=== PATIENT | female | born 1995 | race Caucasian/White ===

== ENCOUNTER → 2017-03-07 | Outpatient (CLI) | payer BC ==
--- NOTE | 2017-03-07 22:09 | MR ---
EXAMINATION TYPE: MR knee LT wo con DATE OF EXAM: 03/07/2017 COMPARISON: NONE HISTORY: Left knee pain per order. Inner knee pain and swelling for 4 weeks after softball injury per patient. TECHNIQUE: Multiplanar, multisequence images of the knee is performed without IV contrast. FINDINGS: MEDIAL MENISCUS: Anterior and posterior horns are intact without tear. LATERAL MENISCUS: Anterior and posterior horns are intact without tear. CRUCIATE LIGAMENTS: The anterior and posterior cruciate ligaments are intact and unremarkable. COLLATERAL LIGAMENTS: The medial collateral ligament and lateral collateral ligament complex are inta ct and unremarkable. EXTENSOR MECHANISM: Visualized quadriceps and patellar tendons are intact. EFFUSION: No significant suprapatellar joint effusion. POPLITEAL CYST: No popliteal/starkey cyst. TRICOMPARTMENT SPACES: Tricompartment joint spaces are fairly well-maintained. No significant spurrin g is seen. CARTILAGE: Tricompartment articular cartilage is felt within normal limits. There is no significant c hondromalacia patella. BONE MARROW SIGNAL: No focal abnormal marrow signal is appreciated. OTHER: No additional significant abnormality is appreciated. IMPRESSION: No meniscal or ligamentous tear is seen. No significant finding is seen to account for jennifer self's symptoms.
== END | disposition home or self-care (01) ==
LOC: RADMRIMAIN 20:07
PROVIDERS: ATTEND Physician Assistant
DX: M25.562 Pain in left knee (principal)

== ENCOUNTER 2018-10-10 15:14 | Emergency (ER) | payer BC, OTHER ==
[2018-10-10 15:21] VITALS: TEMP 97.8
[2018-10-10] MEDS ORDERED: ACETAMINOPHEN TAB 325 MG TAB PO STA (15:39)
--- NOTE | 2018-10-10 16:25 | ED ---
General Adult HPI - General Chief complaint: Fall Stated complaint: Fall, neck pain, 32 weeks Source: patient, RN notes reviewed, old records reviewed Mode of arrival: ambulatory Limitations: no limitations - History of Present Illness Initial comments: 23-year-old female patient who is 32 weeks gestation, no other pertinent pmhx presents to ED after sustaining a mechanical fall last night. Patient reports that she was walking around a car when she slipped on ice and fell onto her left hip/side region. Patient denies any significant trauma to abdomen, patient denies any trauma to head or neck. She denies any loss of consciousness. Patient reports that she presents to ER today because she has some mild paracervical neck pain, parathoracic back pain. Patient denies any other complaints. Patient denies any chest pain, shortness breath, abdominal pain, vaginal bleeding, abdominal cramping, vaginal discharge, loss of bowel or bladder control, nausea vomiting diarrhea, fever or chills. Patient denies IV drug use. Systemic: Pt denies fatigue, myalgia, fever/chills, rash. Pt denies weakness, night sweats, weight loss. Neuro: Pt denies headache, visual disturbances, syncope or pre-syncope. HEENT: Pt denies ocular discharge or irritation, otalgia, rhinorrhea, pharyngitis or notable lymphadenopathy. Cardiopulmonary: Pt denies chest pain, SOB, heart palpitations, dyspnea on exertion. Abdominal/GI: Pt denies abdominal pain, n/v/d. : Pt denies dysuria, burning w/ urination, frequency/urgency. Denies new onset urinary or bowel incontinence. MSK: Pt denies myalgia, loss of strength or function in extremities. Neuro: Pt denies new onset weakness, paresthesias. - Related Data Allergies Allergy/AdvReac Type Severity Reaction Status Date / Time No Known Allergies Allergy Verified 10/10/18 15:21 Review of Systems ROS Statement: Those systems with pertinent positive or pertinent negative responses have been documented in the HPI. ROS Other: All systems not noted in ROS Statement are negative. Past Medical History Past Medical History: No Reported History History of Any Multi-Drug Resistant Organisms: None Reported Past Surgical History: No Surgical Hx Reported Past Psychological History: No Psychological Hx Reported Smoking Status: Never smoker Past Alcohol Use History: None Reported Past Drug Use History: None Reported General Exam - General Exam Comments Initial Comments: Constitutional: NAD, AOX3, Pt has pleasant affect. HEENT: NC/AT, trachea midline, neck supple, no lymphadenopathy. Posterior pharynx non erythematous, without exudates. External ears appear normal, without discharge. Mucous membranes moist. Eyes PERRLA, EOM intact. There is no scleral icterus. No pallor noted. Cardiopulmonary: RRR, no murmurs, rubs or gallops, no JVD noted. Lungs CTAB in anterior and posterior reed. No peripheral edema. Abdominal exam: Abdomen soft and non-distended. Abdomen non-tender to palpation in all 4 quadrants. Bowel sounds active in LLQ. No hepatosplenomegaly. No ecchymosis. Neuro: CN II-XII grossly intact. No nuchal rigidity. MSK: No midline cervical spinal tenderness. Mild R paracervical spinal tenderness. Mild L parathoracic spinal tenderness. No midline thoracic or lumbar tenderness. Psoas and quadricpes 5/5 strength bilaterally. Achillies and patellar reflex 2/4 bilaterally. Heel to toe walking intact. No posterior calf tenderness bilaterally, homans sign negative bilaterally. Posterior tibialis and radial pulse +2 bilaterally. Sensation intact in upper and lower extremities. Full active ROM in upper and lower extremities, 5/5 strength. Limitations: no limitations Course Vital Signs 10/10/18 10/10/18 15:18 16:57 Temperature 97.8 F 97.8 F Pulse Rate 93 77 Respiratory 16 18 Rate Blood Pressure 144/83 136/68 O2 Sat by Pulse 100 97 Oximetry Medical Decision Making - Medical Decision Making 23-year-old female patient who is 32 weeks gestation, no other pertinent pmhx presents to ED after sustaining a mechanical fall last night. Patient reports that she was walking around a car when she slipped on ice and fell onto her left hip/side region. Patient denies any significant trauma to abdomen, patient denies any trauma to head or neck. She denies any loss of consciousness. Patient reports that she presents to ER today because she has some mild paracervical neck pain, parathoracic back pain. Patient denies any other complaints. Patient denies any vaginal bleeding, abdominal cramping, vaginal discharge, loss of bowel or bladder control. Physical exam did not display acute pathology. Patient was administered Tylenol for pain. Discussed with patient that it is very likely that she sustained any fractures, and with shared decision making we decided to forgot x-rays. Pt followed by paint spray inspector Dr. Riojas, spoke with [employer] functional analyst paint spray inspector for practice Dr. Bee. Pt had a NST done in ED that did not demonstrate any acute pathology or worrisome findings. Results were conveyed to Dr. Bee who agreed - did not recommend any further intervention. Pt had a pre arranged appointment with her paint spray inspector tomorrow , and will keep this appointment. Pt to return to ED if any new s/sx develop or if condition worsens in anyway. Pt to f/u with PCP in 1-2 days. Case discussed in depth with Dr. Romero. Disposition Clinical Impression: Fall, Disposition: HOME SELF-CARE Condition: Good Instructions: (ED) Additional Instructions: Patient to adhere to previously discussed treatment plan and will take medication(s) as directed. Patient to follow up with PCP in 1-2 days. Patient to return to ED if symptoms do not improve. Is patient prescribed a controlled substance at d/c from ED?: No Referrals: None,Stated [Primary Care Provider] - 1-2 days Jaleesa Najera DO [Doctor of Osteopathic Medicine] - 1-2 days Time of Disposition: 16:51
[2018-10-10 16:59] VITALS: BP 136/68; PULSE 77; RESP 18
== END 2018-10-10 16:59 | disposition home or self-care (01) ==
LOC: EC 15:14
DX: O9A.213 Injury, poisoning and certain other consequences of external causes complicating pregnancy, third trimester (principal); M54.2 Cervicalgia; M54.6 Pain in thoracic spine; Z3A.32 32 weeks gestation of pregnancy; W00.0XXA Fall on same level due to ice and snow, initial encounter; Y93.01 Activity, walking, marching and hiking
CPT/HCPCS: 99284

== ENCOUNTER 2018-11-26 01:40 | Inpatient (IN) | payer BC, OTHER ==
[2018-11-26] MEDS ORDERED: METHYLERGONOVINE 0.2 MG/ML 1 ML AMP IM PRN (02:05)
[2018-11-26] MEDS ORDERED: OXYTOCIN 10 UNIT/ML 1 ML VIAL IM PRN (02:05)
[2018-11-26] MEDS ORDERED: TERBUTALINE 1 MG/ML VIAL SQ PRN (02:05)
[2018-11-26] MEDS ORDERED: LIDOCAINE 0.5% (PF) 5 MG/ML (50 ML SDV) SQ PRN (02:05)
[2018-11-26] MEDS ORDERED: CARBOPROST TROMETHAMINE 250 MCG/ML 1 ML AMP IM PRN (02:05)
[2018-11-26] MEDS ORDERED: LACTATED RINGERS 1,000 ML IV SCH (02:15)
[2018-11-26] MEDS ORDERED: OXYTOCIN 30 UNITS/500 ML NS 30 UNIT in SALINE 1 500ML.BAG IV SCH (02:15)
[2018-11-26 02:26] VITALS: BMI 29.7
[2018-11-26 02:44] LABS: Basophils % (A) 0 %; Eosinophils # (A) 0.1 k/uL (0-0.7); Eosinophils % (A) 1 %; HCT 34.4 % (34.0-46.0); HGB 11.3 gm/dL (11.4-16.0); Lymphocytes # (A) 1.7 k/uL (1.0-4.8); Lymphocytes % (A) 16 %; MCH 28.3 pg (25.0-35.0); MCHC 32.9 g/dL (31.0-37.0); MCV 86.1 fL (80.0-100.0); Mean Platelet Volume 7.4; Monocytes # (A) 0.5 k/uL (0-1.0); Monocytes % (A) 4 %; Neutrophils # (A) 8.3 k/uL (1.3-7.7); Neutrophils % (A) 78 %; Platelet Count 268 k/uL (150-450); WBC 10.6 k/uL (3.8-10.6)
--- NOTE | 2018-11-26 06:23 | P.HPOB ---
History of Present Illness H&P Date: 11/26/18 Chief Complaint: 38+ weeks, active labor The patient is a 23-year-old 1 para 0 admitted at 38+ weeks as established by last menstrual period and confirmed by second trimester ultrasound. She is admitted in early active labor with all signs reassuring. Her has been uncomplicated and group B strep status is negative. She is known to be Rh- and received RhoGAM at approximately 28 weeks. Obstetrical history: 1 para 0 with current statistics listed in history present illness. EDC of 12/06/2018 was established by last menstrual period and confirmed by second trimester ultrasound. Laboratory workup demonstrates a blood type of B- with a negative antibody screen. Rubella status is nonimmune. Remainder of her laboratory workup was within normal limits. One hour Glucola was initially elevated but followed by a normal three-hour glucose tolerance test. Group B strep status is negative. Gynecologic history: Unremarkable with no history of any infections to include STDs. Review of Systems Review of systems is confined to history of present illness. Past Medical History Past Medical History: No Reported History History of Any Multi-Drug Resistant Organisms: None Reported Past Surgical History: No Surgical Hx Reported Past Anesthesia/Blood Transfusion Reactions: No Reported Reaction Past Psychological History: No Psychological Hx Reported Smoking Status: Never smoker Past Alcohol Use History: None Reported Past Drug Use History: None Reported - Past Family History Mother Family Medical History: No Reported History Medications and Allergies Home Medications Medication Instructions Recorded Confirmed Type Pnv No.95/Ferrous Fum/Folic AC 1 tab PO DAILY 11/26/18 11/26/18 History [ Multivitamin Tablet] Allergies Allergy/AdvReac Type Severity Reaction Status Date / Time No Known Allergies Allergy Verified 11/26/18 01:42 Exam Vital Signs Temp Pulse Resp BP Pulse Ox 11/26/18 02:20 97.3 F L 83 16 131/77 100 11/26/18 02:04 97.3 F L 83 16 131/77 100 Intake and Output 11/25/18 11/25/18 11/26/18 14:59 22:59 06:59 Other: Weight 86.046 kg In general, this is a well-developed, well-nourished white female in some discomfort as she is nearing complete dilation and labor. Her heart has a regular rhythm and rate without murmur. Her lungs are clear to auscultation bilaterally in all reed. Her abdomen is gravid, nondistended, has normal active bowel sounds, is soft, nontender, without any palpable masses aside from uterine fundus. Her extremities are without any cyanosis, clubbing, or significant edema and are nontender to palpation bilaterally. Digital cervical examination performed by the nursing staff last demonstrated her cervix to be approximately 8-9 cm dilated, 90% effaced, with the vertex in presentation at - 1 station. Results Result Diagrams: 11/26/18 02:30 Abnormal Lab Results - Last 24 Hours (Table) 11/26/18 Range/Units 02:30 Hgb 11.3 L (11.4-16.0) gm/dL Neutrophils # 8.3 H (1.3-7.7) k/uL Assessment and Plan (1) Active labor at term Current Visit: Yes Status: Acute Code(s): TEA8619 - SNOMED Code(s): 74014855 Plan: The patient has been admitted for active management of labor. She will continue to have close maternal and surveillance and expectant management will be practiced. I would anticipate normal spontaneous vaginal delivery in the near future. At this point, she has opted to not have an epidural catheter placed.
[2018-11-26] MEDS ORDERED: LANOLIN CREAM 5 GM TUBE TOPICAL PRN (08:21)
[2018-11-26] MEDS ORDERED: diphenhydrAMINE 25 MG CAP PO PRN (08:21)
[2018-11-26] MEDS ORDERED: SIMETHICONE 80 MG CHEWABLE PO PRN (08:21)
[2018-11-26] MEDS ORDERED: ZOLPIDEM 5 MG TAB PO PRN (08:21)
[2018-11-26] MEDS ORDERED: MEASLES-MUMPS-RUBELLA VACC/PF 12,500 UNIT/0.5 ML VIAL SQ ONE (08:21)
[2018-11-26] MEDS ORDERED: HYDROCORTISONE 2.5% RECTAL CREAM 30 GM TUBE RECTAL PRN (08:21)
[2018-11-26] MEDS ORDERED: diphenhydrAMINE 50 MG/ML 1 ML VIAL IVP PRN ×2 (08:21)
[2018-11-26] MEDS ORDERED: WITCH HAZEL 1 EACH MED..PAD TOPICAL PRN (08:21)
[2018-11-26] MEDS ORDERED: BENZOCAINE/MENTHOL SPRAY 1 GM/SPRAY AEROSOL TOPICAL PRN (08:21)
[2018-11-26] MEDS ORDERED: diphenhydrAMINE 50 MG CAP PO PRN (08:21)
--- NOTE | 2018-11-26 08:21 | P.PROBDLV ---
Vaginal Delivery Note - . Vaginal Delivery Note: This is a very pleasant 23-year-old 1 para 0 at 38-4/7 weeks that presented to labor and delivery in active labor. Patient progressed through labor eventually becoming complete began pushing and had a normal spontaneous vaginal delivery of a viable male at 756. Infant's weight noted to be 7 lbs. 10 oz. with Apgars of 9 and 10 at one and 5 minutes respectively. A loose nuchal was noted at delivery and delivered through. After a two-minute delay the umbilical cord was then doubly clamped and cut and cord blood was then taken as she is B-. The placenta was then delivered spontaneously intact with a three-vessel cord being noted. On inspection the patient's vaginal vault bilateral labial lacerations were noted these were repaired in usual fashion with 4-0 chromic. Hemostasis was appreciated after the repair. The uterus was noted to be firm and below the umbilicus at this time. Estimated blood loss for this delivery 400 mL Patient and tolerated delivery well and are resting comfortably.
[2018-11-26] MEDS ORDERED: OXYTOCIN 20 UNITS/1000 ML NS 1,000 ML IV SCH (08:30)
[2018-11-26] MEDS: IBUPROFEN 600 MG TAB PO PRN (11:58)
[2018-11-26] MEDS ORDERED: Rhogam IMMUNE GLOBULIN 1,500 UNIT/1 ML IM ONE (14:55)
[2018-11-26] MEDS: ACETAMINOPHEN TAB 325 MG TAB PO PRN (18:37)
[2018-11-26] MEDS: SENNOSIDES-DOCUSATE SODIUM 1 EACH TAB PO SCH (20:39)
[2018-11-27] MEDS: IBUPROFEN 600 MG TAB PO PRN ×2 (00:18→06:09)
[2018-11-27] MEDS: ACETAMINOPHEN TAB 325 MG TAB PO PRN (02:53)
[2018-11-27 07:36] LABS: Basophils # (A) 0.1 k/uL (0-0.2); Basophils % (A) 1 %; Eosinophils # (A) 0.1 k/uL (0-0.7); Eosinophils % (A) 1 %; HCT 28.7 % (34.0-46.0); Hypochromasia Slight; Lymphocytes # (A) 2.9 k/uL (1.0-4.8); Lymphocytes % (A) 26 %; MCH 27.8 pg (25.0-35.0); MCV 86.8 fL (80.0-100.0); Mean Platelet Volume 6.8; Monocytes # (A) 0.6 k/uL (0-1.0); Monocytes % (A) 6 %; Neutrophils # (A) 7.1 k/uL (1.3-7.7); Neutrophils % (A) 65 %; Platelet Count 258 k/uL (150-450); RDW 12.9 % (11.5-15.5)
[2018-11-27 07:57] LABS: HGB 9.2 gm/dL (11.4-16.0)
[2018-11-27 08:34] VITALS: BP 115/64; PULSE 75; RESP 16; TEMP 98.1
--- NOTE | 2018-11-27 09:24 | P.DS ---
Providers Date of admission: 11/26/18 02:09 Expected date of discharge: 11/27/18 Attending physician: Jaleesa Najera Primary care physician: Stated None - Discharge Diagnosis(es) (1) Active labor at term Current Visit: Yes Status: Acute (2) Rh negative status during Current Visit: Yes Status: Acute (3) Term Current Visit: Yes Status: Acute Hospital Course: This is a very pleasant 23-year-old 1 para 0 at 38-4/7 weeks that presented to labor and delivery on 11/26 in active labor. Patient was admitted to labor and delivery progressed through labor eventually becoming complete began pushing and had a normal spontaneous vaginal delivery at 756 of a viable male weight of 7 lbs. 10 oz. and Apgars of 9 and 10 at one and 5 minutes respectively. Patient did sustain bilateral labial lacerations which were repaired in the usual fashion this morning she is feeling well she is ambulating and voiding without difficulty. She is tolerating a regular diet without nausea or vomiting. She is breast-feeding without difficulty. She states her lochia is moderate today. She wishes discharge home on this day #1. care is discussed with the patient should she have any questions or concerns that arise prior to her visit she is urged to call the office. Patient Condition at Discharge: Good Plan - Discharge Summary New Discharge Prescriptions: No Action Pnv No.95/Ferrous Fum/Folic AC [ Multivitamin Tablet] 1 tab PO DAILY Discharge Medication List Pnv No.95/Ferrous Fum/Folic AC [ Multivitamin Tablet] 1 tab PO DAILY [History] Follow up Appointment(s)/Referral(s): Jaleesa Najera DO [Doctor of Osteopathic Medicine] - 4 Weeks Patient Instructions/Handouts: Vaginal Delivery (DC), Vaginal Delivery (GEN) Discharge Disposition: HOME SELF-CARE
[2018-11-27] MEDS: SENNOSIDES-DOCUSATE SODIUM 1 EACH TAB PO SCH (10:46)
== END 2018-11-27 14:50 | disposition home or self-care (01) | DRG 807 ==
LOC: FBPOP 01:40 → 4FBP 02:09
PROVIDERS: ADMIT Obstetrics & Gynecology; ATTEND Obstetrics & Gynecology Obstetrics
PROC: 10907ZC Drainage of Amniotic Fluid, Therapeutic from Products of Conception, Via Natural or Artificial Opening (ICD-10-PCS; principal; 2018-11-26)
PROC: 0HQ9XZZ Repair Perineum Skin, External Approach (ICD-10-PCS; principal; 2018-11-26)
PROC: 10E0XZZ Delivery of Products of Conception, External Approach (ICD-10-PCS; principal; 2018-11-26)
DX: O70.0 First degree perineal laceration during delivery (principal); Z37.0 Single live birth; Z3A.38 38 weeks gestation of pregnancy; O69.81X0 Labor and delivery complicated by cord around neck, without compression, not applicable or unspecified
CPT/HCPCS: 59025; 85025; 85461; 86850; 86870; 86880; 86900; 86901; 90707; 99213

== ENCOUNTER 2019-04-28 22:04 | Inpatient (IN) | payer BC, OTHER ==
[2019-04-28 23:06] LABS: Basophils % (A) 0 %; Eosinophils # (A) 0.2 k/uL (0-0.7); Eosinophils % (A) 2 %; HCT 30.2 % (34.0-46.0); HGB 9.5 gm/dL (11.4-16.0); Lymphocytes # (A) 2.9 k/uL (1.0-4.8); Lymphocytes % (A) 31 %; MCH 24.4 pg (25.0-35.0); MCHC 31.3 g/dL (31.0-37.0); MCV 78.1 fL (80.0-100.0); Mean Platelet Volume 8.3; Microcytosis Slight; Monocytes # (A) 0.4 k/uL (0-1.0); Monocytes % (A) 4 %; Neutrophils # (A) 5.8 k/uL (1.3-7.7); Neutrophils % (A) 62 %; Platelet Count 223 k/uL (150-450); RBC 3.87 m/uL (3.80-5.40); WBC 9.4 k/uL (3.8-10.6)
[2019-04-28 23:12] LABS: ALT 33 U/L (9-52); AST 31 U/L (14-36); African American GFR (CKD) >90 (>60 ml/min/1.73 sqM); Alkaline Phosphatase 88 U/L (38-126); Amylase 37 U/L (30-110); Anion Gap 10 mmol/L; Blood Urea Nitrogen 14 mg/dL (7-17); Calcium 8.5 mg/dL (8.4-10.2); Carbon Dioxide 24 mmol/L (22-30); Chloride 105 mmol/L (98-107); Glucose 94 mg/dL (74-99); Lipase 62 U/L (23-300); Potassium 3.3 mmol/L (3.5-5.1); Sodium 139 mmol/L (137-145); Total Bilirubin 0.8 mg/dL (0.2-1.3); Total Protein 6.8 g/dL (6.3-8.2)
[2019-04-28 23:27] LABS: Appearance,Urine Cloudy (Clear); Bacteria,Urine Few /hpf; Bilirubin,Urine Negative (Negative); Blood,Urine Negative (Negative); Color,Urine Yellow; Glucose,Urine (UA) Negative (Negative); Ketones,Urine Negative (Negative); Leukocyte Esterase,Urine Small (Negative); Mucus,Urine Occasional /hpf; Nitrite,Urine Negative (Negative); PH, Urine 5.5 (5.0-8.0); Protein,Urine Trace (Negative); RBC,Urine 1 /hpf (0-5); Specific Gravity,Urine 1.033 (1.001-1.035); Squamous Epithelial Cell,Urine 15 /hpf (0-4); Urobilinogen,Urine <2.0 mg/dL (<2.0); WBC,Urine 4 /hpf (0-5)
--- NOTE | 2019-04-29 00:06 | ED ---
Abdominal Pain HPI - General Source: patient Mode of arrival: ambulatory Limitations: no limitations <Meron Byrne - Last Filed: 04/29/19 01:09> <Carri White - Last Filed: 04/29/19 07:56> - General Chief Complaint: Abdominal Pain Stated Complaint: Abd Pain Time Seen by Provider: 04/28/19 22:29 - History of Present Illness Initial Comments: 23-year-old female presenting for diffuse abdominal pain nausea x 3-4 days. Patient states the past week she has been nauseous and has had abdominal pain all over the abdomen. She is unable to localize the pain currently, stating it is everywhere but it started in the lower pelvic region about 4 days prior. Patient denies any vomiting. Denies vaginal bleeding vaginal discharge dysuria urgency frequency or back pain. Patient states that her last period 3-4 weeks ago. She states she has been back with her control recently and is concerned of . Patient states the pain is crampy and at times sharp in nature. Patient denies any chest pain or shortness of breath. Patient denies any fevers or recent travel. Patient denies melena or hematochezia. Remaining review of systems negative upon arrival patient appears well there is no signs of acute distress vital signs within acceptable limits. (Meron Byrne) - Related Data Home Medications Medication Instructions Recorded Confirmed No Known Home Medications 04/28/19 04/28/19 Allergies Allergy/AdvReac Type Severity Reaction Status Date / Time No Known Allergies Allergy Verified 04/28/19 22:41 Review of Systems ROS Other: All systems not noted in ROS Statement are negative. <Meron Byrne - Last Filed: 04/29/19 01:09> ROS Other: All systems not noted in ROS Statement are negative. <Carri White - Last Filed: 04/29/19 07:56> ROS Statement: Those systems with pertinent positive or pertinent negative responses have been documented in the HPI. Past Medical History Past Medical History: No Reported History History of Any Multi-Drug Resistant Organisms: None Reported Past Surgical History: No Surgical Hx Reported Past Anesthesia/Blood Transfusion Reactions: No Reported Reaction Past Psychological History: No Psychological Hx Reported Smoking Status: Never smoker Past Alcohol Use History: None Reported Past Drug Use History: None Reported - Past Family History Mother Family Medical History: No Reported History <Meron Byrne Clarita - Last Filed: 04/29/19 01:09> General Exam Limitations: no limitations <Meron Byrne - Last Filed: 04/29/19 01:09> - General Exam Comments Initial Comments: General: The patient is awake and alert, in no distress, and does not appear acutely ill. Eye: +3 mm pupils are equal, round and reactive to light, extra-ocular movements are intact. No nystagmus. There is normal conjunctiva bilaterally. No signs of icterus. Ears, nose, mouth and throat: There are moist mucous membranes and no oral lesions. Neck: The neck is supple, there is no tenderness or JVD. Cardiovascular: There is a regular rate and rhythm. No murmur, rub or gallop is appreciated. Respiratory: Lungs are clear to auscultation, respirations are non-labored, breath sounds are equal. No wheezes, stridor, rales, or rhonchi. Gastrointestinal: Soft, non-distended, diffuse lower pelvic tenderness with right slighlty greater than left without masses or organomegaly noted. There is no rebound or guarding present. No CVA tenderness. Bowel sounds are unremarkable. Pelvic: No external lesion, no adnexal or cervical motion tenderness, vaginal discharge in vault, no blood. Musculoskeletal: Normal ROM, no tenderness. Strength 5/5. Sensation intact. Radial pulses equal bilaterally 2+. Neurological: A&O x 3. CN II-XII intact, There are no obvious motor or sensory deficits. Coordination appears grossly intact. Speech is normal. Skin: Skin is warm and dry and no rashes or lesions are noted. Psychiatric: Cooperative, appropriate mood & affect, normal judgment. (ChavezMeron L) Course Vital Signs 04/28/19 04/29/19 04/29/19 22:26 02:30 02:38 Temperature 98.5 F 98.6 F Pulse Rate 69 76 74 Respiratory 20 18 18 Rate Blood Pressure 115/72 112/69 137/78 O2 Sat by Pulse 99 98 97 Oximetry Medical Decision Making - Lab Data Result diagrams: 04/28/19 22:40 04/28/19 22:40 <Meron Byrne - Last Filed: 04/29/19 01:09> - Lab Data Result diagrams: 04/28/19 22:40 04/28/19 22:40 <Carri White - Last Filed: 04/29/19 07:56> - Medical Decision Making I personally saw and evaluated the patient, I reviewed the patient's labs, imaging, vital signs. This time there is concern that the patient has a ruptured ectopic . I contacted the patient's team assembly line machine operator Dr. Tran who unfortunately is not composite bond technician tonight and not in town, I contacted her partner Dr. Bazzi. Patient care was discussed and decision was made for Dr. Bazzi take the patient to the OR for For possible ruptured ectopic . This plan was discussed with the patient who is agreeable. (Carri White) - Lab Data Lab Results 04/28/19 04/28/19 04/28/19 Range/Units 22:40 22:40 22:40 WBC 9.4 (3.8-10.6) k/uL RBC 3.87 (3.80-5.40) m/uL Hgb 9.5 L (11.4-16.0) gm/dL Hct 30.2 L (34.0-46.0) % MCV 78.1 L (80.0-100.0) fL MCH 24.4 L (25.0-35.0) pg MCHC 31.3 (31.0-37.0) g/dL RDW 16.0 H (11.5-15.5) % Plt Count 223 (150-450) k/uL Neutrophils % 62 % Lymphocytes % 31 % Monocytes % 4 % Eosinophils % 2 % Basophils % 0 % Neutrophils # 5.8 (1.3-7.7) k/uL Lymphocytes # 2.9 (1.0-4.8) k/uL Monocytes # 0.4 (0-1.0) k/uL Eosinophils # 0.2 (0-0.7) k/uL Basophils # 0.0 (0-0.2) k/uL Microcytosis Slight Sodium 139 (137-145) mmol/L Potassium 3.3 L (3.5-5.1) mmol/L Chloride 105 (98-107) mmol/L Carbon Dioxide 24 (22-30) mmol/L Anion Gap 10 mmol/L BUN 14 (7-17) mg/dL Creatinine 0.75 (0.52-1.04) mg/dL Est GFR (CKD-EPI)AfAm >90 (>60 ml/min/1.73 sqM) Est GFR (CKD-EPI)NonAf >90 (>60 ml/min/1.73 sqM) Glucose 94 (74-99) mg/dL Calcium 8.5 (8.4-10.2) mg/dL Total Bilirubin 0.8 (0.2-1.3) mg/dL AST 31 (14-36) U/L ALT 33 (9-52) U/L Alkaline Phosphatase 88 (38-126) U/L Total Protein 6.8 (6.3-8.2) g/dL Albumin 4.0 (3.5-5.0) g/dL Amylase 37 (30-110) U/L Lipase 62 (23-300) U/L HCG, Quant mIU/mL Urine Color Urine Appearance (Clear) Urine pH (5.0-8.0) Ur Specific [place] (1.001-1.035) Urine Protein (Negative) Urine Glucose (UA) (Negative) Urine Ketones (Negative) Urine Blood (Negative) Urine Nitrite (Negative) Urine Bilirubin (Negative) Urine Urobilinogen (<2.0) mg/dL Ur Leukocyte Esterase (Negative) Urine RBC (0-5) /hpf Urine WBC (0-5) /hpf Ur Squamous Epith Cells (0-4) /hpf Urine Bacteria (None) /hpf Urine Mucus (None) /hpf Urine HCG, Qual Detected (Not Detectd) Trichomonas Ag (Rapid) (Negative) Blood Type Blood Type Recheck Antibody Screen 04/28/19 04/28/19 04/29/19 Range/Units 22:40 22:40 02:00 WBC (3.8-10.6) k/uL RBC (3.80-5.40) m/uL Hgb (11.4-16.0) gm/dL Hct (34.0-46.0) % MCV (80.0-100.0) fL MCH (25.0-35.0) pg MCHC (31.0-37.0) g/dL RDW (11.5-15.5) % Plt Count (150-450) k/uL Neutrophils % % Lymphocytes % % Monocytes % % Eosinophils % % Basophils % % Neutrophils # (1.3-7.7) k/uL Lymphocytes # (1.0-4.8) k/uL Monocytes # (0-1.0) k/uL Eosinophils # (0-0.7) k/uL Basophils # (0-0.2) k/uL Microcytosis Sodium (137-145) mmol/L Potassium (3.5-5.1) mmol/L Chloride (98-107) mmol/L Carbon Dioxide (22-30) mmol/L Anion Gap mmol/L BUN (7-17) mg/dL Creatinine (0.52-1.04) mg/dL Est GFR (CKD-EPI)AfAm (>60 ml/min/1.73 sqM) Est GFR (CKD-EPI)NonAf (>60 ml/min/1.73 sqM) Glucose (74-99) mg/dL Calcium (8.4-10.2) mg/dL Total Bilirubin (0.2-1.3) mg/dL AST (14-36) U/L ALT (9-52) U/L Alkaline Phosphatase (38-126) U/L Total Protein (6.3-8.2) g/dL Albumin (3.5-5.0) g/dL Amylase (30-110) U/L Lipase (23-300) U/L HCG, Quant 15091.5 mIU/mL Urine Color Yellow Urine Appearance Cloudy H (Clear) Urine pH 5.5 (5.0-8.0) Ur Specific [place] 1.033 (1.001-1.035) Urine Protein Trace H (Negative) Urine Glucose (UA) Negative (Negative) Urine Ketones Negative (Negative) Urine Blood Negative (Negative) Urine Nitrite Negative (Negative) Urine Bilirubin Negative (Negative) Urine Urobilinogen <2.0 (<2.0) mg/dL Ur Leukocyte Esterase Small H (Negative) Urine RBC 1 (0-5) /hpf Urine WBC 4 (0-5) /hpf Ur Squamous Epith Cells 15 H (0-4) /hpf Urine Bacteria Few H (None) /hpf Urine Mucus Occasional H (None) /hpf Urine HCG, Qual (Not Detectd) Trichomonas Ag (Rapid) Negative (Negative) Blood Type Blood Type Recheck Antibody Screen 04/29/19 Range/Units 02:00 WBC (3.8-10.6) k/uL RBC (3.80-5.40) m/uL Hgb (11.4-16.0) gm/dL Hct (34.0-46.0) % MCV (80.0-100.0) fL MCH (25.0-35.0) pg MCHC (31.0-37.0) g/dL RDW (11.5-15.5) % Plt Count (150-450) k/uL Neutrophils % % Lymphocytes % % Monocytes % % Eosinophils % % Basophils % % Neutrophils # (1.3-7.7) k/uL Lymphocytes # (1.0-4.8) k/uL Monocytes # (0-1.0) k/uL Eosinophils # (0-0.7) k/uL Basophils # (0-0.2) k/uL Microcytosis Sodium (137-145) mmol/L Potassium (3.5-5.1) mmol/L Chloride (98-107) mmol/L Carbon Dioxide (22-30) mmol/L Anion Gap mmol/L BUN (7-17) mg/dL Creatinine (0.52-1.04) mg/dL Est GFR (CKD-EPI)AfAm (>60 ml/min/1.73 sqM) Est GFR (CKD-EPI)NonAf (>60 ml/min/1.73 sqM) Glucose (74-99) mg/dL Calcium (8.4-10.2) mg/dL Total Bilirubin (0.2-1.3) mg/dL AST (14-36) U/L ALT (9-52) U/L Alkaline Phosphatase (38-126) U/L Total Protein (6.3-8.2) g/dL Albumin (3.5-5.0) g/dL Amylase (30-110) U/L Lipase (23-300) U/L HCG, Quant mIU/mL Urine Color Urine Appearance (Clear) Urine pH (5.0-8.0) Ur Specific [place] (1.001-1.035) Urine Protein (Negative) Urine Glucose (UA) (Negative) Urine Ketones (Negative) Urine Blood (Negative) Urine Nitrite (Negative) Urine Bilirubin (Negative) Urine Urobilinogen (<2.0) mg/dL Ur Leukocyte Esterase (Negative) Urine RBC (0-5) /hpf Urine WBC (0-5) /hpf Ur Squamous Epith Cells (0-4) /hpf Urine Bacteria (None) /hpf Urine Mucus (None) /hpf Urine HCG, Qual (Not Detectd) Trichomonas Ag (Rapid) (Negative) Blood Type B Negative Blood Type Recheck No Antibody Screen NEGATIVE Disposition <Meron Byrne L - Last Filed: 04/29/19 01:09> <Carri White P - Last Filed: 04/29/19 07:56> Clinical Impression: Ruptured ectopic Disposition: ADMITTED IP TO THIS [facility] Condition: Serious
--- NOTE | 2019-04-29 00:51 | US ---
EXAMINATION TYPE: Transabdominal DATE OF EXAM: 04/29/2019 12:14 AM COMPARISON: NONE CLINICAL HISTORY: hcg elevated. HCG elevated. Abdominal pain x 6 days. LMP unknown. A0. EXAM PERFORMED: Transvaginal (TV) and Transabdominal (TA) EXAM MEASUREMENTS: GESTATIONAL AGE / DATING Physician Established: Not yet established. Dates by LMP: LMP unknown Dates by First Scan: This is first scan. No IUP seen. Dates by Current Scan for: No IUP seen. MATERNAL ANATOMY Uterus: 9.6 x 5.9 x 3.3 cm Endometrium measures: 0.93 cm. Right Ovary: not seen Left Ovary: not seen Post CDS / Adnexa: Large amount of complex fluid seen. Probable clots. Presence of free fluid: Yes. Fluid seen in both right and left adnexa. Presence of corpus luteal cyst: none seen GESTATION / SURVEY IUP: No IUP seen Date of LMP: Unknown Beta HcG (if available): Detected IMPRESSION: 1. No evidence of an IUP. Correlate with beta HCG and short interval follow up if clinically indicated. 2. Complex fluid in the pelvis which may represent blood products.
[2019-04-29] MEDS ORDERED: MORPHINE SULFATE 2 MG/ML SYRINGE IVP STA (01:20)
[2019-04-29] MEDS ORDERED: Rhogam IMMUNE GLOBULIN 1,500 UNIT/1 ML IM ONE (01:47)
[2019-04-29] MEDS ORDERED: SODIUM CHLORIDE 0.9% 1,000 ML IV SCH (02:00)
[2019-04-29] MEDS ORDERED: NALOXONE 0.4 MG/ML 1 ML VIAL IV PRN ×4 (02:33→04:26)
--- NOTE | 2019-04-29 02:41 | P.HPOB ---
History of Present Illness H&P Date: 04/29/19 Chief Complaint: Severe abdominal pain This is a 23-year-old white female 2 para 1001 last menstrual period unknown, 3-4 weeks ago. Patient presents this morning to the emergency room with severe abdominal pain. She states this began 6 days ago, but became progressively worse at work tonight while she was working at the [employer]. This is accompanied by dizziness and lightheadedness. Admission to the emergency room reveals an ultrasound suggesting free fluid in the abdomen. No intrauterine structures are noted. Adnexa also appear negative so nographically. Beta hCG is over 10,000. Blood type B negative. Past medical history is essentially negative. Past surgical history wisdom teeth extracted 2012 Current medications none. ALLERGIES none known. Social history patient is single, she lives at home with her parents. Past gynecologic history patient states is negative for gonorrhea, chlamydia, herpes. She was prescribed control pill but has not been taking it regularly. Past obstetric history normal spontaneous vaginal delivery liveborn male in November of this year, 7 lbs. 10 oz. Family history is essentially unremarkable. On exam patient is 5 foot 6 inches, 180 pounds, 81 kg, BMI 29. Vital signs are stable including a blood pressure 115/72, pulse 69, 99% O2 saturation, patient is afebrile. HEENT examination reveals good dentition, no thyromegaly. Chest is clear in all reed. Cardiac exam reveals regular rate and rhythm with no murmur click or rub. Abdomen is softly distended, there is rebound and guarding noted to both right and left upper quadrants. Pelvic examination is deferred in the emergency room at this time. Extremities reveal good peripheral pulses, no edema, normal reflexes, normal range of motion. Hemoglobin 9.5. Blood type B negative. Impression: Ruptured ectopic , site uncertain. Patient currently hemodynamically stable. Plan: We will proceed to the operating room for exploratory laparotomy and surgery as indicated. Patient is aware of the risks and benefits of this procedure including potential loss of a tube or ovary. Risk of bleeding, infection, damage to surrounding organs is reviewed. Risk of aspiration, nerve damage, dental issues or even from anesthesia have also been discussed. Rhogam will also be given. All questions answered, I believe patient understands our discussion without reservation or issue. Review of Systems Constitutional: Reports as per HPI Past Medical History Past Medical History: No Reported History History of Any Multi-Drug Resistant Organisms: None Reported Past Surgical History: No Surgical Hx Reported Past Anesthesia/Blood Transfusion Reactions: No Reported Reaction Past Psychological History: No Psychological Hx Reported Smoking Status: Never smoker Past Alcohol Use History: None Reported Past Drug Use History: None Reported - Past Family History Mother Family Medical History: No Reported History Medications and Allergies Home Medications Medication Instructions Recorded Confirmed Type No Known Home Medications 04/28/19 04/28/19 History Allergies Allergy/AdvReac Type Severity Reaction Status Date / Time No Known Allergies Allergy Verified 04/28/19 22:41 Exam Vital Signs Temp Pulse Resp BP Pulse Ox 04/29/19 02:30 98.6 F 76 18 112/69 98 04/28/19 22:26 98.5 F 69 20 115/72 99 Intake and Output 04/28/19 04/28/19 04/29/19 14:59 22:59 06:59 Other: Weight 81.647 kg See dictation under [facility] Results Result Diagrams: 04/28/19 22:40 04/28/19 22:40 Abnormal Lab Results - Last 24 Hours (Table) 04/28/19 04/28/19 04/28/19 Range/Units 22:40 22:40 22:40 Hgb 9.5 L (11.4-16.0) gm/dL Hct 30.2 L (34.0-46.0) % MCV 78.1 L (80.0-100.0) fL MCH 24.4 L (25.0-35.0) pg RDW 16.0 H (11.5-15.5) % Potassium 3.3 L (3.5-5.1) mmol/L Urine Appearance Cloudy H (Clear) Urine Protein Trace H (Negative) Ur Leukocyte Esterase Small H (Negative) Ur Squamous Epith Cells 15 H (0-4) /hpf Urine Bacteria Few H (None) /hpf Urine Mucus Occasional H (None) /hpf Assessment and Plan Assessment: Ruptured ectopic , blood type B negative. Plan: Exploratory laparotomy and surgery as indicated. All risks benefits and discussion have been thoroughly reviewed with the patient, and I believe she understands our plan. Time with Patient: Greater than 30
[2019-04-29] MEDS ORDERED: SUCCINYLCHOLINE CHLORIDE 100 MG/5 ML SYR IV ONE (02:50)
[2019-04-29] MEDS ORDERED: ONDANSETRON 4 MG/2 ML VIAL ONE (02:50)
[2019-04-29] MEDS ORDERED: GLYCOPYRROLATE 0.2 MG/ML 2 ML VIAL ONE (02:50)
[2019-04-29] MEDS ORDERED: fentaNYL (PF) 50 MCG/ML 2 ML AMP ONE (02:50)
[2019-04-29] MEDS ORDERED: MIDAZOLAM 2 MG/2 ML VIAL ONE (02:50)
[2019-04-29] MEDS ORDERED: LACTATED RINGERS 1,000 ML IV ONE (02:50)
[2019-04-29] MEDS ORDERED: NEOSTIGMINE 1 MG/ML 10 ML VIAL ONE (02:50)
[2019-04-29] MEDS ORDERED: ROCURONIUM BROMIDE 10 MG/ML 10 ML VIAL IV ONE (02:50)
[2019-04-29] MEDS ORDERED: METOCLOPRAMIDE 5 MG/ML 2 ML VIAL IVP PRN (03:50)
[2019-04-29] MEDS ORDERED: diphenhydrAMINE 50 MG/ML 1 ML VIAL IVP PRN (03:50)
[2019-04-29] MEDS ORDERED: SIMETHICONE 80 MG CHEWABLE PO PRN (03:50)
[2019-04-29] MEDS ORDERED: ONDANSETRON 4 MG/2 ML VIAL IVP PRN (03:50)
--- NOTE | 2019-04-29 03:50 | P.OP ---
Date of Procedure: 04/29/19 Preoperative Diagnosis: Presumed ruptured ectopic Postoperative Diagnosis: Right ectopic , ruptured, hemoperitoneum Procedure(s) Performed: Exploratory laparotomy, right salpingectomy Anesthesia: ERIC Surgeon: Melanie Bazzi Display Carver #1: Yarelis Lawton Estimated Blood Loss (ml): 50 IV fluids (ml): 700 Urine output (ml): 150 Pathology: other (Right fallopian tube) Condition: stable Disposition: PACU Operative Findings: Approximately 3-400 mL of blood and clot in the pelvis. Distended right fallopian tube with obvious rupture. Normal-appearing ovaries bilaterally. No uterine anomalies. Normal-appearing left fallopian tube. Description of Procedure: Patient is brought to the operating suite where a general anesthetic is administered without difficulty. She's placed in the dorsal supine position. Vance catheter placed to direct drainage. The abdomen is prepped and draped in usual sterile fashion. The appropriate timeout is performed to assure proper patient and procedural identification. Antibiotics are given, 2 g of Ancef. A low transverse skin incision is made in this is carried down through the subcutaneous tissue to the fascia. Fascia is isolated, scored, and extended bilaterally with curved Whittaker scissors. Peritoneum is next identified and incised. Upon entering the peritoneal cavity a large amount of dark blood and clot is encountered. This is suctioned thoroughly. The abdomen is then packed gently with the aid of a O'Chris-O'Gamboa retractor. The right fallopian tube is noted to be distended throughout its length, expressing blood and tissue from an obvious ruptured the fimbriated end. A salpingotomy is initially attempted, however I am unable to have adequate bleeding control. For this reason, a salpingectomy is performed. 0 Vicryl sutures used for closure. The right ovary appears normal, the left fallopian tube and ovary also appeared normal. Pelvis is then generously irrigated with warm saline. The pelvis is now noted to be clean and dry. Peritoneum is allowed to close by secondary intention. The fascia is closed in a running stitch using 0 Vicryl suture. Subcutaneous tissue is irrigated, clean and dry. It is reapproximated with 2-0 Vicryl in a running fashion. 4-0 undyed Monocryl is used for final skin closure. Steri-Strips and Mastisol are applied to the wound. Vance is noted to be draining clear urine. Total estimated blood loss for surgery 50 mL, urine output 150 mL, fluid replacement 700 mL's. Patient is brought back to recovery room in good condition with stable vital signs including blood pressure 127/74, pulse 95, 100% O2 saturation. LIBRARY ACQUISITIONS TECHNICIAN will be started and the recovery room for analgesic purposes.
[2019-04-29] MEDS ORDERED: HYDROmorphone 1 MG/ML 1 ML SYRINGE IVP ONE ×3 (04:00→04:30)
[2019-04-29] MEDS ORDERED: KETOROLAC 30 MG/ML 1 ML VIAL IVP ONE (04:10)
[2019-04-29] MEDS ORDERED: SODIUM CHLORIDE 0.9% 1,000 ML IV ONE (05:00)
[2019-04-29 05:49] VITALS: BMI 29.0
[2019-04-29] MEDS: HYDROmorphone 0.5 MG/0.5 ML SYRINGE IVP PRN ×3 (09:37→21:56)
[2019-04-29 09:55] VITALS: RESP 16
[2019-04-29] MEDS: KETOROLAC 30 MG/ML 1 ML VIAL IVP PRN ×2 (11:37→18:15)
[2019-04-30] MEDS: KETOROLAC 30 MG/ML 1 ML VIAL IVP PRN (06:01)
--- NOTE | 2019-04-30 07:53 | P.DS ---
Providers Date of admission: 04/29/19 02:33 Expected date of discharge: 04/30/19 Attending physician: Melanie Bazzi Primary care physician: Stated None Hospital Course: This is a 23-year-old white female 2 para 1001 who presented with ruptured ectopic through the emergency room. She had not been using anything for contraception, had a beta hCG of 10,000 and an empty uterus per sonogram, as well as a pelvis full of fluid and debris. She was taken to the operating room where she had an exploratory laparotomy and right salpingectomy. I was unable to obtain adequate hemostasis with my attempt to perform a salpingotomy, please see dictated operative note for details. This morning the patient looks well. She is voiding, ambulating, passing flatus without difficulty. Vital signs are stable and she is afebrile. Incision is clean and dry, intact with Steri-Strips applied. Abdomen is soft, tender throughout with no rebound. She does have a minimal amount of guarding to deep palpation in the lower quadrants. No CVA tenderness. Extremities are negative for edema. Chest is clear in all reed. Patient is judged to be in stable condition for discharge home. She will use [id number] Advil or Aleve, or ibuprofen as needed for pain. I reminded her no intercourse, tampons or douching. We have reviewed proper incisional care. She will call with any pain not alleviated by [id number] products, with any lightheadedness or dizziness, or indeed with any difficulties or concerns. We have discussed options for contraception, and we will discuss this further in the office at the 2 week postoperative check. Patient has a 5-month-old at home and is anxious to return home. She is not breast- feeding. She has good family support and assistance at home. Patient Condition at Discharge: Stable Plan - Discharge Summary Discharge Rx Participant: No New Discharge Prescriptions: No Action No Known Home Medications Discharge Medication List No Known Home Medications 04/28/19 [History] Follow up Appointment(s)/Referral(s): None,Stated [Primary Care Provider] - 2 Weeks Discharge Disposition: HOME SELF-CARE
[2019-04-30] MEDS: IBUPROFEN 600 MG TAB PO PRN ×2 (10:44→16:13)
[2019-04-30 17:20] VITALS: BP 104/56; PULSE 88; TEMP 97.9
[2019-05-01 13:32] LABS: C. trachomatis,PCR Negative (Neg,Equiv); Chlamydia trachomatis Source Vagina
[2019-05-01 13:36] LABS: N. gonorrhoeae,PCR Negative (Neg,Equiv); Neisseria Source Vagina
== END 2019-04-30 17:50 | disposition home or self-care (01) | DRG 817 ==
LOC: EC 22:04 → 6PED 04-29 02:33 → 4FBP 04-29 14:46 → OBSVTOIN 04-29 14:50
PROVIDERS: ADMIT Obstetrics & Gynecology; ATTEND Obstetrics & Gynecology
PROC: 10T20ZZ Resection of Products of Conception, Ectopic, Open Approach (ICD-10-PCS; 2019-04-29)
PROC: 0UT50ZZ Resection of Right Fallopian Tube, Open Approach (ICD-10-PCS; principal; 2019-04-29 02:33)
DX: O00.101 Right tubal pregnancy without intrauterine pregnancy (principal); K66.1 Hemoperitoneum
CPT/HCPCS: 36415; 76801; 76817; 80053; 81001; 81025; 82150; 83690; 84702; 85025; 86850; 86900; 86901; 87070; 87205; 87491; 87591; 87808; 88305; 96374; 99285

== ENCOUNTER → 2019-11-28 | Outpatient (CLI) | payer BC ==
[2019-11-28 10:08] LABS: HCT 32.9 % (34.0-46.0); HGB 10.3 gm/dL (11.4-16.0); Hypochromasia Slight; MCH 24.4 pg (25.0-35.0); MCHC 31.3 g/dL (31.0-37.0); MCV 78.1 fL (80.0-100.0); Mean Platelet Volume 8.4; Microcytosis Slight; Platelet Count 202 k/uL (150-450); RBC 4.21 m/uL (3.80-5.40); RDW 15.8 % (11.5-15.5); WBC 10.6 k/uL (3.8-10.6)
== END | disposition home or self-care (01) ==
LOC: LABWHC1 08:28
PROVIDERS: ATTEND Obstetrics & Gynecology
DX: Z34.82 Encounter for supervision of other normal pregnancy, second trimester (principal); Z3A.00 Weeks of gestation of pregnancy not specified
CPT/HCPCS: 36415; 82950; 85027; 86850

== ENCOUNTER 2020-02-13 15:34 | Outpatient (CLI) | payer BC ==
[2020-02-13 16:06] VITALS: BP 133/65; PULSE 102; RESP 16; TEMP 98
--- NOTE | 2020-02-16 07:51 | P.MSEPDOC ---
Presenting Problems - Arrival Data Date of Arrival on Unit: 02/13/20 Time of Arrival on Unit: 15:22 Mode of Transport: Wheelchair - Complaint OB-Reason for Admission/Chief Complaint: Dizziness Medical History - Information : 3 Para: 1 - Gestational Age Gestational Age by NAY (wks/days): 36 Weeks and 3 Days Review of Systems - Review of Systems Constitutional: No problems Breast: No problems ENT: No problems Cardiovascular: No problems Respiratory: No problems Gastrointestinal: No problems Genitourinary: No problems Musculoskeletal: No problems Neurological: No problems Skin: No problems Vital Signs - Temperature Temperature: 98.0 F Temperature Source: Temporal Artery Scan - Pulse Right Sitting Brachial Pulse Rate: 102 Pulse Assessment Method: Automatic Cuff - Respirations Respiratory Rate: 16 Oxygen Delivery Method: Room Air O2 Sat by Pulse Oximetry: 98 - Blood Pressure Right Arm Sitting Blood Pressure: 133/65 Blood Pressure Mean: 87 Blood Pressure Source: Automatic Cuff Medical Screen Scoring (Pre) - Cervical Exam Dilation: Exam Deferred Effacement: Exam Deferred - Uterine Contractions Frequency: N/A Duration: N/A Intensity: N/A - Maternal Vital Signs Maternal Temperature: N/A Maternal Blood Pressure: N/A Signs of Preeclampsia: N/A Maternal Respirations: N/A - Maternal Trauma Maternal Trauma: N/A - Assessment - Baby A Baseline FHR: 140 Heart Rate - NICHD Category: Category I (Normal) = 0 NST: Reactive Position: N/A Station: N/A - Total Score - Baby A Total Score - Baby A: 0 - Total Score - Baby B Total Score - Baby B: 0 - Total Score - Baby C Total Score - Baby C: 0 - Level of Risk - Baby A Level of Risk - Baby A: Low (0-5) - Level of Risk - Baby B Level of Risk - Baby B: Low (0-5) - Level of Risk - Baby C Level of Risk - Baby C: Low (0-5) Physician Notification (Pre) - Physician Notified Physician Notified Date: 02/13/20 Physician Notified Time: 16:00 New Order Received: Yes - Notification Comment Comment: discharge pt home Disposition - Disposition OB Disposition: Discharge to home Discharge Date: 02/13/20 Discharge Time: 16:00 I agree with the RN Medical Screening Exam: Yes Risk & Benefit of care provided described in d/c instruction: Yes Diagnosis: DIZZINESS AND GIDDINESS
== END 2020-02-13 16:10 | disposition home or self-care (01) ==
LOC: FBPOP 15:34
PROVIDERS: ATTEND Obstetrics & Gynecology
DX: O99.89 Other specified diseases and conditions complicating pregnancy, childbirth and the puerperium (principal); R42 Dizziness and giddiness; Z3A.36 36 weeks gestation of pregnancy
CPT/HCPCS: 59025; 99213

== ENCOUNTER 2020-03-03 16:10 | Emergency (ER) | payer BC ==
[2020-03-03 16:33] VITALS: RESP 18; TEMP 98.1
[2020-03-03 17:36] LABS: Basophils % (A) 0 %; Eosinophils # (A) 0.1 k/uL (0-0.7); Eosinophils % (A) 1 %; HCT 28.8 % (34.0-46.0); HGB 8.6 gm/dL (11.4-16.0); Hypochromasia Marked; Lymphocytes # (A) 1.9 k/uL (1.0-4.8); Lymphocytes % (A) 21 %; MCHC 29.9 g/dL (31.0-37.0); MCV 70.2 fL (80.0-100.0); Mean Platelet Volume 10.2; Microcytosis Moderate; Monocytes # (A) 0.6 k/uL (0-1.0); Monocytes % (A) 6 %; Neutrophils # (A) 6.4 k/uL (1.3-7.7); Neutrophils % (A) 71 %; Platelet Count 168 k/uL (150-450); Poikilocytosis Slight; RDW 15.5 % (11.5-15.5)
[2020-03-03 17:48] LABS: Amorphous Sediment,Urine Rare /hpf; Appearance,Urine Clear (Clear); Bacteria,Urine Many /hpf; Bilirubin,Urine Negative (Negative); Blood,Urine Negative (Negative); Color,Urine Light Yellow; Glucose,Urine (UA) Negative (Negative); Hyaline Casts,Urine 1 /lpf (0-2); Ketones,Urine Negative (Negative); Leukocyte Esterase,Urine Moderate (Negative); Nitrite,Urine Negative (Negative); Protein,Urine Negative (Negative); RBC,Urine 1 /hpf (0-5); Specific Gravity,Urine 1.004 (1.001-1.035); Squamous Epithelial Cell,Urine 7 /hpf (0-4); Urobilinogen,Urine <2.0 mg/dL (<2.0); WBC,Urine 21 /hpf (0-5)
[2020-03-03 17:57] LABS: ALT 16 U/L (4-34); AST 23 U/L (14-36); African American GFR (CKD) >90 (>60 ml/min/1.73 sqM); Albumin 3.1 g/dL (3.5-5.0); Alkaline Phosphatase 148 U/L (38-126); Anion Gap 7 mmol/L; Blood Urea Nitrogen 6 mg/dL (7-17); Calcium 8.3 mg/dL (8.4-10.2); Carbon Dioxide 21 mmol/L (22-30); Chloride 106 mmol/L (98-107); Glucose 84 mg/dL (74-99); LDH 438 U/L (313-618); Non-African American GFR(CKD) >90 (>60 ml/min/1.73 sqM); Potassium 3.9 mmol/L (3.5-5.1); Sodium 134 mmol/L (137-145); Total Bilirubin 0.6 mg/dL (0.2-1.3); Total Protein 6.2 g/dL (6.3-8.2); Uric Acid 3.9 mg/dL (3.7-7.4)
--- NOTE | 2020-03-03 20:52 | ED ---
Extremity Problem HPI - General Chief complaint: Extremity Problem,Nontraumatic Stated complaint: leg swelling Time Seen by Provider: 03/03/20 16:52 Source: patient Mode of arrival: ambulatory Limitations: no limitations - History of Present Illness Initial comments: 24-year-old female who is currently 39 weeks presenting for bilateral leg swelling. Patient denies any chest pain shortness of breath she denies any redness or specific calf pain. Patient was sent to the emergency department by her PNEUMATIC TESTER MECHANIC Dr. Soria for r/o DVT> Patient denies cramping, vaginal bleeding, vomiting, nausea, urinary symptoms or any additional complaints. - Related Data Home Medications Medication Instructions Recorded Confirmed No Known Home Medications 04/28/19 02/13/20 Allergies Allergy/AdvReac Type Severity Reaction Status Date / Time No Known Allergies Allergy Verified 03/03/20 16:33 Review of Systems ROS Statement: Those systems with pertinent positive or pertinent negative responses have been documented in the HPI. ROS Other: All systems not noted in ROS Statement are negative. Past Medical History Past Medical History: No Reported History History of Any Multi-Drug Resistant Organisms: None Reported Past Surgical History: No Surgical Hx Reported Past Anesthesia/Blood Transfusion Reactions: No Reported Reaction Past Psychological History: No Psychological Hx Reported Smoking Status: Never smoker Past Alcohol Use History: None Reported Past Drug Use History: None Reported - Past Family History Mother Family Medical History: No Reported History General Exam - General Exam Comments Initial Comments: General: The patient is awake and alert, in no distress, and does not appear acutely ill. Eye: Pupils are equal, round and reactive to light, extra-ocular movements are intact. No nystagmus. There is normal conjunctiva bilaterally. No signs of icterus. Cardiovascular: There is a regular rate and rhythm. No murmur, rub or gallop is appreciated. Respiratory: Lungs are clear to auscultation, respirations are non-labored, breath sounds are equal. No wheezes, stridor, rales, or rhonchi. Musculoskeletal: Normal ROM, no tenderness. Strength 5/5. Sensation intact. Pulses equal bilaterally 2+. Neurological: A&O x 3. CN II-XII intact grossly, There are no obvious motor or sensory deficits. Coordination appears grossly intact. Speech is normal. Skin: Skin is warm and dry and no rashes or lesions are noted. B/l leg swelling appears equal, no pitting edema. Psychiatric: Cooperative, appropriate mood & affect, normal judgment. Limitations: no limitations Course Vital Signs 03/03/20 03/03/20 16:29 21:03 Temperature 98.1 F 98.1 F Pulse Rate 74 71 Respiratory 18 18 Rate Blood Pressure 111/68 111/77 O2 Sat by Pulse 99 97 Oximetry Medical Decision Making - Medical Decision Making US (-). NST done in ER, evaluated by Dr. Soria-WNL. Patient has no CP/SOB. Appears well-no HTN, no protein in urine. Discussed UA with who does not recommend treatment. Dr Soria aware of HgB. Dr. Gillis agreeable to Dr. Soria recommendations and discharge. - Lab Data Result diagrams: 03/03/20 17:28 03/03/20 17:28 Lab Results 03/03/20 03/03/20 03/03/20 Range/Units 17:11 17:28 17:28 WBC 9.0 (3.8-10.6) k/uL RBC 4.10 (3.80-5.40) m/uL Hgb 8.6 L (11.4-16.0) gm/dL Hct 28.8 L (34.0-46.0) % MCV 70.2 L (80.0-100.0) fL MCH 21.0 L (25.0-35.0) pg MCHC 29.9 L (31.0-37.0) g/dL RDW 15.5 (11.5-15.5) % Plt Count 168 (150-450) k/uL Neutrophils % 71 % Lymphocytes % 21 % Monocytes % 6 % Eosinophils % 1 % Basophils % 0 % Neutrophils # 6.4 (1.3-7.7) k/uL Lymphocytes # 1.9 (1.0-4.8) k/uL Monocytes # 0.6 (0-1.0) k/uL Eosinophils # 0.1 (0-0.7) k/uL Basophils # 0.0 (0-0.2) k/uL Hypochromasia Marked Poikilocytosis Slight Microcytosis Moderate Sodium 134 L (137-145) mmol/L Potassium 3.9 (3.5-5.1) mmol/L Chloride 106 (98-107) mmol/L Carbon Dioxide 21 L (22-30) mmol/L Anion Gap 7 mmol/L BUN 6 L (7-17) mg/dL Creatinine 0.45 L (0.52-1.04) mg/dL Est GFR (CKD-EPI)AfAm >90 (>60 ml/min/1.73 sqM) Est GFR (CKD-EPI)NonAf >90 (>60 ml/min/1.73 sqM) Glucose 84 (74-99) mg/dL Uric Acid 3.9 (3.7-7.4) mg/dL Calcium 8.3 L (8.4-10.2) mg/dL Total Bilirubin 0.6 (0.2-1.3) mg/dL AST 23 (14-36) U/L ALT 16 (4-34) U/L Alkaline Phosphatase 148 H (38-126) U/L Lactate Dehydrogenase 438 (313-618) U/L NT-Pro-B Natriuret Pep pg/mL Total Protein 6.2 L (6.3-8.2) g/dL Albumin 3.1 L (3.5-5.0) g/dL Urine Color Light Yellow Urine Appearance Clear (Clear) Urine pH 7.0 (5.0-8.0) Ur Specific [place] 1.004 (1.001-1.035) Urine Protein Negative (Negative) Urine Glucose (UA) Negative (Negative) Urine Ketones Negative (Negative) Urine Blood Negative (Negative) Urine Nitrite Negative (Negative) Urine Bilirubin Negative (Negative) Urine Urobilinogen <2.0 (<2.0) mg/dL Ur Leukocyte Esterase Moderate H (Negative) Urine RBC 1 (0-5) /hpf Urine WBC 21 H (0-5) /hpf Ur Squamous Epith Cells 7 H (0-4) /hpf Amorphous Sediment Rare H (None) /hpf Urine Bacteria Many H (None) /hpf Hyaline Casts 1 (0-2) /lpf 03/03/ Range/Units 17:28 WBC (3.8-10.6) k/uL RBC (3.80-5.40) m/uL Hgb (11.4-16.0) gm/dL Hct (34.0-46.0) % MCV (80.0-100.0) fL MCH (25.0-35.0) pg MCHC (31.0-37.0) g/dL RDW (11.5-15.5) % Plt Count (150-450) k/uL Neutrophils % % Lymphocytes % % Monocytes % % Eosinophils % % Basophils % % Neutrophils # (1.3-7.7) k/uL Lymphocytes # (1.0-4.8) k/uL Monocytes # (0-1.0) k/uL Eosinophils # (0-0.7) k/uL Basophils # (0-0.2) k/uL Hypochromasia Poikilocytosis Microcytosis Sodium (137-145) mmol/L Potassium (3.5-5.1) mmol/L Chloride (98-107) mmol/L Carbon Dioxide (22-30) mmol/L Anion Gap mmol/L BUN (7-17) mg/dL Creatinine (0.52-1.04) mg/dL Est GFR (CKD-EPI)AfAm (>60 ml/min/1.73 sqM) Est GFR (CKD-EPI)NonAf (>60 ml/min/1.73 sqM) Glucose (74-99) mg/dL Uric Acid (3.7-7.4) mg/dL Calcium (8.4-10.2) mg/dL Total Bilirubin (0.2-1.3) mg/dL AST (14-36) U/L ALT (4-34) U/L Alkaline Phosphatase (38-126) U/L Lactate Dehydrogenase (313-618) U/L NT-Pro-B Natriuret Pep 41 pg/mL Total Protein (6.3-8.2) g/dL Albumin (3.5-5.0) g/dL Urine Color Urine Appearance (Clear) Urine pH (5.0-8.0) Ur Specific [place] (1.001-1.035) Urine Protein (Negative) Urine Glucose (UA) (Negative) Urine Ketones (Negative) Urine Blood (Negative) Urine Nitrite (Negative) Urine Bilirubin (Negative) Urine Urobilinogen (<2.0) mg/dL Ur Leukocyte Esterase (Negative) Urine RBC (0-5) /hpf Urine WBC (0-5) /hpf Ur Squamous Epith Cells (0-4) /hpf Amorphous Sediment (None) /hpf Urine Bacteria (None) /hpf Hyaline Casts (0-2) /lpf Disposition Clinical Impression: Leg swelling in , Anemia affecting in third trimester Disposition: HOME SELF-CARE Condition: Good Additional Instructions: Please use medication as discussed. Please follow-up with OBGYN in next 2 days. Please return to emergency room if the symptoms increase or worsen or for any other concerns. Is patient prescribed a controlled substance at d/c from ED?: No Referrals: None,Stated [Primary Care Provider] - 1-2 days Latosha Soria DO [Doctor of Osteopathic Medicine] - 1-2 days Time of Disposition: 20:51
[2020-03-03 21:05] VITALS: BP 111/77; PULSE 71
--- NOTE | 2020-03-04 11:56 | US ---
EXAMINATION TYPE: US venous doppler duplex LE DATE OF EXAM: 03/04/2020 11:42 AM COMPARISON: NONE CLINICAL HISTORY: Leg swelling. SIDE PERFORMED: Bilateral TECHNIQUE: The lower extremity deep venous system is examined utilizing real time linear array sonog jakob with graded compression, doppler sonography and color-flow sonography. VESSELS IMAGED: External Iliac Vein (EIV) Common Femoral Vein Deep Femoral Vein Greater Saphenous Vein * Femoral Vein Popliteal Vein Small Saphenous Vein * Proximal Calf Veins (* superficial vessels) Grayscale, color doppler, spectral doppler imaging performed of the deep veins of the lower extremiti es. There is normal flow, compressibility, vascular waveforms. Right Leg: Negative for DVT Left Leg: Negative for DVT IMPRESSION: No sonographic findings of acute deep venous thrombosis within either the visualized [place] ateral lower extremities.
== END 2020-03-03 21:11 | disposition home or self-care (01) ==
LOC: EC 16:10
DX: O99.013 Anemia complicating pregnancy, third trimester (principal); D64.9 Anemia, unspecified; O99.713 Diseases of the skin and subcutaneous tissue complicating pregnancy, third trimester; M79.89 Other specified soft tissue disorders; Z3A.39 39 weeks gestation of pregnancy
CPT/HCPCS: 36415; 80053; 81001; 83615; 83880; 84550; 85025; 93005; 93970; 99284

== ENCOUNTER 2020-03-08 05:58 | Inpatient (IN) | payer BC, OTHER ==
[2020-03-08] MEDS ORDERED: LACTATED RINGERS 1,000 ML IV ONE (06:10)
[2020-03-08] MEDS ORDERED: CITRIC ACID-SODIUM CITRATE 15 ML CUP PO ONE (06:10)
[2020-03-08 06:49] LABS: Basophils % (A) 0 %; Eosinophils # (A) 0.1 k/uL (0-0.7); Eosinophils % (A) 2 %; HCT 29.3 % (34.0-46.0); HGB 8.9 gm/dL (11.4-16.0); Hypochromasia Marked; Lymphocytes % (A) 22 %; MCH 22.1 pg (25.0-35.0); MCHC 30.5 g/dL (31.0-37.0); MCV 72.5 fL (80.0-100.0); Mean Platelet Volume 8.5; Microcytosis Slight; Monocytes # (A) 0.6 k/uL (0-1.0); Monocytes % (A) 7 %; Neutrophils % (A) 67 %; Platelet Count 159 k/uL (150-450); Poikilocytosis Slight; RBC 4.04 m/uL (3.80-5.40); RDW 15.3 % (11.5-15.5); WBC 8.9 k/uL (3.8-10.6)
[2020-03-08] MEDS ORDERED: METHYLERGONOVINE 0.2 MG/ML 1 ML AMP IM PRN (07:30)
[2020-03-08] MEDS ORDERED: CARBOPROST TROMETHAMINE 250 MCG/ML 1 ML AMP IM PRN (07:30)
[2020-03-08] MEDS ORDERED: OXYTOCIN 10 UNIT/ML 1 ML VIAL IM PRN (07:30)
[2020-03-08] MEDS ORDERED: OXYTOCIN 30 UNITS/500 ML NS 30 UNIT in SALINE 1 500ML.BAG IV SCH (07:30)
[2020-03-08] MEDS ORDERED: LIDOCAINE 0.5% (PF) 5 MG/ML (50 ML SDV) SQ PRN (07:30)
[2020-03-08] MEDS ORDERED: TERBUTALINE 1 MG/ML VIAL SQ PRN (07:30)
[2020-03-08] MEDS ORDERED: BUTORPHANOL 1 MG/ML 1 ML VIAL IV PRN (09:39)
[2020-03-08] MEDS: LACTATED RINGERS 1,000 ML IV SCH ×2 (11:13→15:39)
[2020-03-08] MEDS ORDERED: BENZOCAINE/MENTHOL SPRAY 1 GM/SPRAY AEROSOL TOPICAL PRN (15:13)
[2020-03-08] MEDS ORDERED: diphenhydrAMINE 50 MG CAP PO PRN (15:13)
[2020-03-08] MEDS ORDERED: SIMETHICONE 80 MG CHEWABLE PO PRN (15:13)
[2020-03-08] MEDS ORDERED: diphenhydrAMINE 50 MG/ML 1 ML VIAL IVP PRN ×2 (15:13)
[2020-03-08] MEDS ORDERED: Rhogam IMMUNE GLOBULIN 1,500 UNIT/1 ML IM ONE (15:13)
[2020-03-08] MEDS ORDERED: LANOLIN CREAM 5 GM TUBE TOPICAL PRN (15:13)
[2020-03-08] MEDS ORDERED: diphenhydrAMINE 25 MG CAP PO PRN (15:13)
[2020-03-08] MEDS ORDERED: IBUPROFEN 600 MG TAB PO PRN (15:13)
[2020-03-08] MEDS ORDERED: ACETAMINOPHEN TAB 325 MG TAB PO PRN (15:13)
[2020-03-08] MEDS ORDERED: WITCH HAZEL 1 EACH MED..PAD TOPICAL PRN (15:13)
[2020-03-08] MEDS ORDERED: HYDROCORTISONE 2.5% RECTAL CREAM 30 GM TUBE RECTAL PRN (15:13)
[2020-03-08] MEDS ORDERED: ZOLPIDEM 5 MG TAB PO PRN (15:13)
[2020-03-08] MEDS ORDERED: OXYTOCIN 20 UNITS/1000 ML NS 1,000 ML IV SCH (15:15)
[2020-03-08] MEDS: SENNOSIDES-DOCUSATE SODIUM 1 EACH TAB PO SCH (20:03)
[2020-03-09 05:59] LABS: Basophils % (A) 0 %; Eosinophils # (A) 0.1 k/uL (0-0.7); Eosinophils % (A) 1 %; HCT 25.8 % (34.0-46.0); HGB 7.7 gm/dL (11.4-16.0); Hypochromasia Marked; Lymphocytes # (A) 2.4 k/uL (1.0-4.8); Lymphocytes % (A) 20 %; MCH 21.6 pg (25.0-35.0); MCV 72.1 fL (80.0-100.0); Microcytosis Moderate; Monocytes % (A) 8 %; Neutrophils # (A) 8.6 k/uL (1.3-7.7); Neutrophils % (A) 70 %; Platelet Count 173 k/uL (150-450); Poikilocytosis Slight; RBC 3.58 m/uL (3.80-5.40); RDW 15.3 % (11.5-15.5); WBC 12.3 k/uL (3.8-10.6)
--- NOTE | 2020-03-09 08:26 | P.HPOB ---
History of Present Illness H&P Date: 03/08/20 Chief Complaint: Inductioin of labor 24-year-old presents at 39 weeks and 6 days for induction of labor. Her cervix is 2 cm dilated, 70% effaced, -2 station. She is viral irregularly. heart tones 130 with moderate variability and reactive. Review of Systems All systems: negative Constitutional: Denies chills, Denies fever Eyes: denies blurred vision, denies pain Ears, nose, mouth and throat: Denies headache, Denies sore throat Cardiovascular: Denies chest pain, Denies shortness of breath Respiratory: Denies cough Gastrointestinal: Denies abdominal pain, Denies diarrhea, Denies nausea, Denies vomiting Genitourinary: Denies dysuria, Denies hematuria Musculoskeletal: Denies myalgias Integumentary: Denies pruritus, Denies rash Neurological: Denies numbness, Denies weakness Psychiatric: Denies anxiety, Denies depression Endocrine: Denies fatigue, Denies weight change Past Medical History Past Medical History: No Reported History Additional Past Medical History / Comment(s): Obstetric history: She's had one ectopic, 1 previous vaginal delivery, this is her third . She's had care with me since the first trimester. Blood type is B-, antibodies negative, rubella immune, hep placed B-, RPR nonreactive, GBS negative. History of Any Multi-Drug Resistant Organisms: None Reported Past Surgical History: No Surgical Hx Reported Past Anesthesia/Blood Transfusion Reactions: No Reported Reaction Past Psychological History: No Psychological Hx Reported Smoking Status: Never smoker Past Alcohol Use History: None Reported Past Drug Use History: None Reported - Past Family History Mother Family Medical History: No Reported History Medications and Allergies Home Medications Medication Instructions Recorded Confirmed Type No Known Home Medications 04/28/19 03/08/20 History Allergies Allergy/AdvReac Type Severity Reaction Status Date / Time No Known Allergies Allergy Verified 03/08/20 06:10 Exam Osteopathic Statement: *. No significant issues noted on an osteopathic structural exam other than those noted in the History and Physical/Consult. Vital Signs Temp Pulse Resp BP Pulse Ox 03/08/20 23:48 98.6 F 93 16 102/52 99 03/08/20 20:00 98.2 F 99 16 117/67 03/08/20 17:10 97.6 F 78 16 122/60 03/08/20 16:40 97.6 F 70 16 119/58 03/08/20 16:10 96.8 F L 84 16 118/59 03/08/20 15:55 97.4 F L 83 16 110/56 03/08/20 15:40 97.2 F L 16 111/50 03/08/20 15:25 97.0 F L 96 16 124/58 03/08/20 15:10 97.8 F 88 16 127/57 Intake and Output 03/08/20 03/09/20 03/09/20 22:59 06:59 14:59 Output Total 500 Balance -500 Output: Estimated Blood Loss 500 Other: # Voids 0 1 Heart: Regular rate and rhythm Lungs: Clear to auscultation bilaterally Abdomen: Soft, nontender Extremities: Negative Homans sign Results Result Diagrams: 03/09/20 05:30 Abnormal Lab Results - Last 24 Hours (Table) 03/09/20 Range/Units 05:30 WBC 12.3 H (3.8-10.6) k/uL RBC 3.58 L (3.80-5.40) m/uL Hgb 7.7 L (11.4-16.0) gm/dL Hct 25.8 L (34.0-46.0) % MCV 72.1 L (80.0-100.0) fL MCH 21.6 L (25.0-35.0) pg MCHC 30.0 L (31.0-37.0) g/dL Neutrophils # 8.6 H (1.3-7.7) k/uL Assessment and Plan (1) Normal labor Current Visit: Yes Status: Acute Code(s): O80 - ENCOUNTER FOR FULL-TERM UNCOMPLICATED DELIVERY; Z37.9 - OUTCOME OF DELIVERY, UNSPECIFIED SNOMED Code(s): 35599733 Plan: 1.Induction of labor with amniotomy and Pitocin 2. Anticipate normal vaginal delivery
--- NOTE | 2020-03-09 08:28 | P.PROBDLV ---
Vaginal Delivery Note - . Vaginal Delivery Note: 24-year-old presents at 39 weeks and 6 days for induction of labor. Her cervix is 2 cm dilated, 70% effaced, -2 station. She is viral irregularly. heart tones 130 with moderate variability and reactive. Pitocin was started. Amniotomy performed at 7:24 AM and clear fluid noted. She progressed slowly throughout the day. Her cervix was completely dilated just after 1430. Patient pushed, and delivered a viable male over intact perineum at 1457. Head delivered OA, anterior shoulder delivered gentle downward guidance followed by posterior shoulder and rest of body. Nose and mouth bulb suctioned, cord clamped and cut, infant placed mother's abdomen. Apgars 9, 9, weight 7 lbs. 7 oz. Placenta delivered spontaneously, intact with three-vessel cord at 1500. Vagina, cervix, and perineum inspected. Second- degree midline laceration was repaired with 3-0 Vicryl. Estimated blood loss 250 mL. Mother and baby in stable condition.
--- NOTE | 2020-03-09 08:29 | P.DS ---
Providers Date of admission: 03/08/20 05:58 Expected date of discharge: 03/09/20 Attending physician: Latosha Soria Primary care physician: Stated None - Discharge Diagnosis(es) (1) Normal labor Current Visit: Yes Status: Resolved (2) Normal vaginal delivery Current Visit: Yes Status: Acute Hospital Course: Patient presented for induction of labor. She underwent a normal vaginal delivery. Her course was uncomplicated. She denies nausea, vomiting, chest pain, shortness of breath or any calf pain. Her fundus is firm and there was scant bleeding. She'll be discharged home day #1 in stable condition to follow-up with me in 6 weeks. Patient Condition at Discharge: Stable Plan - Discharge Summary New Discharge Prescriptions: New Ibuprofen [Motrin] 600 mg PO Q6HR PRN #30 tab PRN Reason: Mild Pain Or Fever >= 100.5 Discharge Medication List Ibuprofen [Motrin] 600 mg PO Q6HR PRN #30 tab 03/09/20 [Rx] Follow up Appointment(s)/Referral(s): Latosha Soria DO [Doctor of Osteopathic Medicine] - 6 Weeks Discharge Disposition: HOME SELF-CARE
[2020-03-09 08:46] VITALS: RESP 15
[2020-03-09] MEDS: SENNOSIDES-DOCUSATE SODIUM 1 EACH TAB PO SCH ×2 (10:59→13:36)
[2020-03-09 16:30] VITALS: BP 109/67; PULSE 72; TEMP 98.4
[2020-03-09 21:07] LABS: HIV 2 AB Non-Reactive (Non-Reactive); HIV AB P24 Non-Reactive (Non-Reactive); HIV P24 AG Non-Reactive (Non-Reactive)
== END 2020-03-09 17:20 | disposition home or self-care (01) | DRG 807 ==
LOC: 4FBP 05:58
PROVIDERS: ADMIT Obstetrics & Gynecology; ATTEND Obstetrics & Gynecology
PROC: 3E033VJ Introduction of Other Hormone into Peripheral Vein, Percutaneous Approach (ICD-10-PCS; principal; 2020-03-08 08:00)
PROC: 3E0234Z Introduction of Serum, Toxoid and Vaccine into Muscle, Percutaneous Approach (ICD-10-PCS; principal; 2020-03-08 08:00)
PROC: 0KQM0ZZ Repair Perineum Muscle, Open Approach (ICD-10-PCS; principal; 2020-03-08 08:00)
PROC: 10E0XZZ Delivery of Products of Conception, External Approach (ICD-10-PCS; principal; 2020-03-08 08:00)
PROC: 10907ZC Drainage of Amniotic Fluid, Therapeutic from Products of Conception, Via Natural or Artificial Opening (ICD-10-PCS; principal; 2020-03-08 08:00)
DX: O70.1 Second degree perineal laceration during delivery (principal); Z37.0 Single live birth; O26.893 Other specified pregnancy related conditions, third trimester; Z67.21 Type B blood, Rh negative; Z3A.39 39 weeks gestation of pregnancy; Z11.59 Encounter for screening for other viral diseases
CPT/HCPCS: 85025; 85461; 86850; 86900; 86901; 87390

== ENCOUNTER 2020-03-24 01:02 | Emergency (ER) | payer BC, OTHER ==
[2020-03-24 01:09] VITALS: RESP 18; TEMP 97.9
--- NOTE | 2020-03-24 01:16 | ED ---
General Adult HPI - General Chief complaint: Back Pain/Injury Stated complaint: Abdominal/Chest Pain Time Seen by Provider: 03/24/20 01:10 Source: patient, family Mode of arrival: ambulatory Limitations: no limitations - History of Present Illness Initial comments: 24yo female with no significant past medical history who is currently 2 weeks after vaginal presenting for cc middle of the back pain--pain increases with moving/twist or deep inspiratin and radiations from center of upper back and along ribs b/l along her side. Patient states that the symptoms began at 11:30PM she states that at that time she also experienced SOB and was anxious. Patient denies nausea, jaw pain, arm pain. Denies current SOB. Patient denies hemptysis, leg swelling, history of DVT/PE. Patient denies substernal chest pain or pressure. Denies fevers, cough, URI symptoms. Patient appears well on arrival ambulatory no signs of acute distress. Patient denies additional complaints. - Related Data Previous Rx's Medication Instructions Recorded Ibuprofen [Motrin] 600 mg PO Q6HR PRN #30 tab 03/09/20 Cephalexin [Keflex] 500 mg PO Q6HR 5 Days #20 cap 03/24/20 Allergies Allergy/AdvReac Type Severity Reaction Status Date / Time No Known Allergies Allergy Verified 03/24/20 01:09 Review of Systems ROS Statement: Those systems with pertinent positive or pertinent negative responses have been documented in the HPI. ROS Other: All systems not noted in ROS Statement are negative. Past Medical History Past Medical History: No Reported History Additional Past Medical History / Comment(s): Obstetric history: She's had one ectopic, 1 previous vaginal delivery, this is her third . She's had care with me since the first trimester. Blood type is B-, antibodies negative, rubella immune, hep placed B-, RPR nonreactive, GBS negative. History of Any Multi-Drug Resistant Organisms: None Reported Past Surgical History: No Surgical Hx Reported Additional Past Surgical History / Comment(s): surgery for ectopic Past Anesthesia/Blood Transfusion Reactions: No Reported Reaction Past Psychological History: No Psychological Hx Reported Smoking Status: Never smoker Past Alcohol Use History: None Reported Past Drug Use History: None Reported - Past Family History Mother Family Medical History: No Reported History General Exam - General Exam Comments Initial Comments: General: The patient is awake and alert, in no distress Eye: +3 mm pupils are equal, round and reactive to light, extra-ocular movements are intact. No nystagmus. There is normal conjunctiva bilaterally. No signs of icterus. Ears, nose, mouth and throat: There are moist mucous membranes and no oral lesions. Neck: The neck is supple, there is no tenderness or JVD. Cardiovascular: There is a regular rate and rhythm. No murmur, rub or gallop is appreciated. Respiratory: Lungs are clear to auscultation, respirations are non-labored, breath sounds are equal. No wheezes, stridor, rales, or rhonchi. Musculoskeletal: Midlines tenderness to palpation of the thoracic spine. Normal ROM, no tenderness. Strength 5/5. Sensation intact. Radial pulses equal bilaterally 2+. Neurological: A&O x 3. CN II-XII intact grossly, There are no obvious motor or sensory deficits. Coordination appears grossly intact. Speech is normal. Skin: Skin is warm and dry and no rashes or lesions are noted. Psychiatric: Cooperative, appropriate mood & affect, normal judgment. Limitations: no limitations Course Vital Signs 03/24/20 03/24/20 03/24/20 01:04 02:41 03:42 Temperature 97.9 F Pulse Rate 62 60 63 Respiratory 18 18 18 Rate Blood Pressure 131/80 124/73 125/70 O2 Sat by Pulse 98 100 100 Oximetry Medical Decision Making - Medical Decision Making 24yo female presenting for cc fo back pain. DImer elevated but gave brith two weeks ago. CTA (-) for PE, Thoracic aorta WNL. Patient VS. No substernal chest pressure/pain. NO family history of premature CAD and this history does not apperas consistent with cardiac source. Patient troponin (-). CXR mild cardiomegaly. Bacteria in urine will be treated. Patient will be discharged with PCP f/u in next 24-48 hours. Patient is agreeable to care plan and discharge. Pt is not breast feeding. - Lab Data Result diagrams: 03/24/20:20 03/24/20 01:20 Lab Results 03/24/20 03/24/20 03/24/20 Range/Units 01:20 01:20 01:20 WBC 8.4 (3.8-10.6) k/uL RBC 4.63 (3.80-5.40) m/uL Hgb 9.5 L D (11.4-16.0) gm/dL Hct 32.8 L (34.0-46.0) % MCV 70.8 L (80.0-100.0) fL MCH 20.5 L (25.0-35.0) pg MCHC 29.0 L (31.0-37.0) g/dL RDW 16.1 H (11.5-15.5) % Plt Count 212 (150-450) k/uL Neutrophils % 64 % Lymphocytes % 27 % Monocytes % 6 % Eosinophils % 2 % Basophils % 1 % Neutrophils # 5.3 (1.3-7.7) k/uL Lymphocytes # 2.2 (1.0-4.8) k/uL Monocytes # 0.5 (0-1.0) k/uL Eosinophils # 0.2 (0-0.7) k/uL Basophils # 0.0 (0-0.2) k/uL Hypochromasia Marked Anisocytosis Slight Microcytosis Moderate PT 10.0 (9.0-12.0) sec INR 1.0 (<1.2) APTT 22.4 (22.0-30.0) sec D-Dimer 3.61 H (<0.60) mg/L FEU Sodium 138 (137-145) mmol/L Potassium 4.4 (3.5-5.1) mmol/L Chloride 106 (98-107) mmol/L Carbon Dioxide 25 (22-30) mmol/L Anion Gap 7 mmol/L BUN 15 (7-17) mg/dL Creatinine 0.73 (0.52-1.04) mg/dL Est GFR (CKD-EPI)AfAm >90 (>60 ml/min/1.73 sqM) Est GFR (CKD-EPI)NonAf >90 (>60 ml/min/1.73 sqM) Glucose 94 (74-99) mg/dL Calcium 9.4 (8.4-10.2) mg/dL Magnesium 2.1 (1.6-2.3) mg/dL Total Bilirubin 0.8 (0.2-1.3) mg/dL AST 73 H (14-36) U/L ALT 49 H (4-34) U/L Alkaline Phosphatase 109 (38-126) U/L Troponin I (0.000-0.034) ng/mL Total Protein 7.1 (6.3-8.2) g/dL Albumin 4.0 (3.5-5.0) g/dL Urine Color Urine Appearance (Clear) Urine pH (5.0-8.0) Ur Specific Amery (1.001-1.035) Urine Protein (Negative) Urine Glucose (UA) (Negative) Urine Ketones (Negative) Urine Blood (Negative) Urine Nitrite (Negative) Urine Bilirubin (Negative) Urine Urobilinogen (<2.0) mg/dL Ur Leukocyte Esterase (Negative) Urine RBC (0-5) /hpf Urine WBC (0-5) /hpf Ur Squamous Epith Cells (0-4) /hpf Urine Bacteria (None) /hpf 03/24/20 03/24/20 Range/Units 01:20 01:20 WBC (3.8-10.6) k/uL RBC (3.80-5.40) m/uL Hgb (11.4-16.0) gm/dL Hct (34.0-46.0) % MCV (80.0-100.0) fL MCH (25.0-35.0) pg MCHC (31.0-37.0) g/dL RDW (11.5-15.5) % Plt Count (150-450) k/uL Neutrophils % % Lymphocytes % % Monocytes % % Eosinophils % % Basophils % % Neutrophils # (1.3-7.7) k/uL Lymphocytes # (1.0-4.8) k/uL Monocytes # (0-1.0) k/uL Eosinophils # (0-0.7) k/uL Basophils # (0-0.2) k/uL Hypochromasia Anisocytosis Microcytosis PT (9.0-12.0) sec INR (<1.2) APTT (22.0-30.0) sec D-Dimer (<0.60) mg/L FEU Sodium (137-145) mmol/L Potassium (3.5-5.1) mmol/L Chloride (98-107) mmol/L Carbon Dioxide (22-30) mmol/L Anion Gap mmol/L BUN (7-17) mg/dL Creatinine (0.52-1.04) mg/dL Est GFR (CKD-EPI)AfAm (>60 ml/min/1.73 sqM) Est GFR (CKD-EPI)NonAf (>60 ml/min/1.73 sqM) Glucose (74-99) mg/dL Calcium (8.4-10.2) mg/dL Magnesium (1.6-2.3) mg/dL Total Bilirubin (0.2-1.3) mg/dL AST (14-36) U/L ALT (4-34) U/L Alkaline Phosphatase (38-126) U/L Troponin I <0.012 (0.000-0.034) ng/mL Total Protein (6.3-8.2) g/dL Albumin (3.5-5.0) g/dL Urine Color Light Yellow Urine Appearance Cloudy H (Clear) Urine pH 6.5 (5.0-8.0) Ur Specific Amery 1.006 (1.001-1.035) Urine Protein Negative (Negative) Urine Glucose (UA) Negative (Negative) Urine Ketones Negative (Negative) Urine Blood Moderate H (Negative) Urine Nitrite Negative (Negative) Urine Bilirubin Negative (Negative) Urine Urobilinogen <2.0 (<2.0) mg/dL Ur Leukocyte Esterase Large H (Negative) Urine RBC 4 (0-5) /hpf Urine WBC >182 H (0-5) /hpf Ur Squamous Epith Cells <1 (0-4) /hpf Urine Bacteria Rare H (None) /hpf Disposition Clinical Impression: Back pain, Rib pain Disposition: HOME SELF-CARE Condition: Good Instructions (If sedation given, give patient instructions): Back Pain (ED) Additional Instructions: Please use medication as discussed. Please follow-up with family doctor in the next 2 days, please request records from today for PCP to review findings. Please return to emergency room if the symptoms increase or worsen or for any other concerns. Prescriptions: Cephalexin [Keflex] 500 mg PO Q6HR 5 Days #20 cap Is patient prescribed a controlled substance at d/c from ED?: No Referrals: None,Stated [[facility] Care Provider[facility]2 days Time of Disposition: 03:15
[2020-03-24 01:38] LABS: Anisocytosis Slight; Basophils % (A) 1 %; Eosinophils # (A) 0.2 k/uL (0-0.7); Eosinophils % (A) 2 %; HCT 32.8 % (34.0-46.0); Hypochromasia Marked; Lymphocytes # (A) 2.2 k/uL (1.0-4.8); Lymphocytes % (A) 27 %; MCH 20.5 pg (25.0-35.0); MCV 70.8 fL (80.0-100.0); Mean Platelet Volume 7.4; Microcytosis Moderate; Monocytes # (A) 0.5 k/uL (0-1.0); Monocytes % (A) 6 %; Neutrophils # (A) 5.3 k/uL (1.3-7.7); Neutrophils % (A) 64 %; Platelet Count 212 k/uL (150-450); RBC 4.63 m/uL (3.80-5.40); RDW 16.1 % (11.5-15.5); WBC 8.4 k/uL (3.8-10.6)
--- NOTE | 2020-03-24 01:42 | XR ---
EXAMINATION TYPE: XR chest 2V DATE OF EXAM: 03/24/2020 COMPARISON: NONE HISTORY: Chest pain TECHNIQUE: 2 views FINDINGS: Heart is slightly enlarged. Lungs are clear. There is no heart failure. There are no hilar masses. Bony thorax appears intact. IMPRESSION: Mild cardiomegaly in the frontal projection. Normal lungs.
[2020-03-24 01:46] LABS: HGB 9.5 gm/dL (11.4-16.0)
[2020-03-24 01:48] LABS: Appearance,Urine Cloudy (Clear); Bacteria,Urine Rare /hpf; Bilirubin,Urine Negative (Negative); Blood,Urine Moderate (Negative); Color,Urine Light Yellow; Glucose,Urine (UA) Negative (Negative); Ketones,Urine Negative (Negative); Leukocyte Esterase,Urine Large (Negative); Nitrite,Urine Negative (Negative); PH, Urine 6.5 (5.0-8.0); Protein,Urine Negative (Negative); RBC,Urine 4 /hpf (0-5); Specific Gravity,Urine 1.006 (1.001-1.035); Squamous Epithelial Cell,Urine <1 /hpf (0-4); Urobilinogen,Urine <2.0 mg/dL (<2.0); WBC,Urine >182 /hpf (0-5)
[2020-03-24 01:51] LABS: ALT 49 U/L (4-34); AST 73 U/L (14-36); African American GFR (CKD) >90 (>60 ml/min/1.73 sqM); Alkaline Phosphatase 109 U/L (38-126); Anion Gap 7 mmol/L; Blood Urea Nitrogen 15 mg/dL (7-17); Calcium 9.4 mg/dL (8.4-10.2); Carbon Dioxide 25 mmol/L (22-30); Chloride 106 mmol/L (98-107); Glucose 94 mg/dL (74-99); Magnesium 2.1 mg/dL (1.6-2.3); Non-African American GFR(CKD) >90 (>60 ml/min/1.73 sqM); Partial Thromboplastin Time 22.4 sec (22.0-30.0); Potassium 4.4 mmol/L (3.5-5.1); Sodium 138 mmol/L (137-145); Total Bilirubin 0.8 mg/dL (0.2-1.3); Total Protein 7.1 g/dL (6.3-8.2)
[2020-03-24 01:57] LABS: D-Dimer 3.61 mg/L FEU (<0.60)
[2020-03-24] MEDS ORDERED: cefTRIAXone IN SWFI 1,000 MG/10 ML SYRINGE IVP STA (01:59)
[2020-03-24] MEDS ORDERED: MORPHINE SULFATE 4 MG/ML SYRINGE IVP STA (02:40)
--- NOTE | 2020-03-24 02:58 | CT ---
EXAMINATION TYPE: CT chest angio for PE DATE OF EXAM: 03/24/2020 COMPARISON: None HISTORY: R/O PE Chest pain CT DLP: 399.20 mGycm Automated exposure control for dose reduction was used. CONTRAST: Performed with IV Contrast, patient injected with 80 mL of Isovue 370. There are 3-D post processed images. The heart and mediastinum appear normal. There are no hilar masses. There is no mediastinal adenopath y. Thoracic aorta appears intact. There is no aneurysm or dissection. There is no pleural effusion. There is no pericardial effusion. The lungs are clear of infiltrate. Th ere is no evidence of a pulmonary mass. Upper abdominal soft tissues appear intact. The bony thorax a ppears intact. There is normal contrast opacification of the pulmonary arteries. There are no filling defect. IMPRESSION: Normal exam. No evidence of pulmonary embolism.
[2020-03-24] MEDS ORDERED: ACET/COD 300 MG/30 MG STARTER PACK 6 TAB BTL PO STA (03:14)
[2020-03-24 03:43] VITALS: BP 125/70; PULSE 63
== END 2020-03-24 03:43 | disposition home or self-care (01) ==
LOC: EC 01:02
DX: M54.6 Pain in thoracic spine (principal); R07.81 Pleurodynia; R79.89 Other specified abnormal findings of blood chemistry; I51.7 Cardiomegaly; R82.71 Bacteriuria
CPT/HCPCS: 96374; 96375; 99284; 36415; 93005; 85379; 80053; 83735; 84484; 85025; 85610; 85730; 81001; 71046; 71275; J2270; J0696; Q9967

== ENCOUNTER → 2020-04-15 | Outpatient (CLI) | payer BC, OTHER ==
--- NOTE | 2020-04-15 10:32 | US ---
EXAMINATION TYPE: US abdomen complete DATE OF EXAM: 04/15/2020 COMPARISON: NONE CLINICAL HISTORY: 24-year-old female R10.11 right upper quadrant pain. Pain x 2 weeks and radiates to back. TECHNIQUE: Multiple sonographic images of the abdomen are obtained. FINDINGS: EXAM MEASUREMENTS: Liver Length: 15.1 cm Gallbladder Wall: 0.4 cm CBD: 2.2 mm Spleen: 10.6 cm Right Kidney: 11.0 x 57 x 4.4 cm Left Kidney: 9.8 x 5.3 x 5.2 cm Pancreas: No gross abnormality Liver: Sattenuated posteriorly suggests fatty liveron seen. Gallbladder: multiple, mobile, shadowing stones seen within; there is mild wall thickening. No surro unding fluid or abnormal distention. Evidence for sonographic Vega's snon: no wnl: wnl Splwnl: wnl Kidneys: No hydronephrosis. Lower wnl: wnl Abd Aownl: l IMPRES N: 1. Slight increased echogenicity of the liver may be seen with mild hepatic steatosis. 2. Multiple gallstones. There is mild gallbladder wall thickening. Correlate for possible chronic cho lecystitis. HIDA scan can be considered. 3. No biliary ductal dilatation.
== END | disposition home or self-care (01) ==
LOC: RADUSWWP 08:03
PROVIDERS: ATTEND Physician Assistant
DX: K80.20 Calculus of gallbladder without cholecystitis without obstruction (principal); K82.8 Other specified diseases of gallbladder
CPT/HCPCS: 76700

== ENCOUNTER 2020-06-25 09:25 | Day surgery (SDC) | payer BC, OTHER ==
[2020-06-23 15:47] VITALS: BMI 29.7
--- NOTE | 2020-06-25 09:00 | P.GSHP ---
History of Present Illness H&P Date: 06/25/20 Chief Complaint: Chronic cholecystitis Patient presents today for elective cholecystectomy. Patient has had complaints of right upper quadrant pain. Ultrasound showed gallstones with gallbladder wall thickening. Symptoms present for the last several months. Increase with dairy and fatty foods. Past Medical History Past Medical History: No Reported History Additional Past Medical History / Comment(s): irregular bowel movements, gallstones, anemia, History of Any Multi-Drug Resistant Organisms: None Reported Past Surgical History: No Surgical Hx Reported Additional Past Surgical History / Comment(s): surgery for ectopic , exploratory laparoscopy, oral surgery Past Anesthesia/Blood Transfusion Reactions: No Reported Reaction Smoking Status: Never smoker - Past Family History Mother Family Medical History: No Reported History Medications and Allergies Home Medications Medication Instructions Recorded Confirmed Type Norelgestromin/Ethin.estradiol 1 patch TRANSDERM WE 06/23/20 06/23/20 History [Xulane Patch] Allergies Allergy/AdvReac Type Severity Reaction Status Date / Time No Known Allergies Allergy Verified 06/23/20 15:38 Surgical - Exam Physical exam: General: Well-developed, well-nourished HEENT: Normocephalic, sclerae nonicteric Abdomen: Nontender, nondistended Extremities: No edema Neuro: Alert and oriented Assessment and Plan (1) Chronic cholecystitis Narrative/Plan: Will proceed with laparoscopic cholecystectomy, possible open. Risks of bleeding, infection, bile leak, bile duct injury, retained common bile duct stone, trocar injury, conversion to an open procedure, hernia, anesthesia related complications were reviewed. The patient understands and wishes to proceed. Status: Acute Code(s): K81.1 - CHRONIC CHOLECYSTITIS SNOMED Code(s): 07741920
[~2020-06-25 09:25] MED LIST: ACETAMINOPHEN TAB 500 MG TAB PO ONE; DEXAMETHASONE SOD PHOSPHATE 10 MG/ML 1 ML VIAL IV ONE; HEPARIN SODIUM,PORCINE 5,000 UNIT/ML 1 ML VIAL SQ ONE; LACTATED RINGERS 1,000 ML IV SCH; MIDAZOLAM 2 MG/2 ML VIAL IV PRN; ONDANSETRON 4 MG/2 ML VIAL IVP ONE; SCOPOLAMINE 1.5MG/72HR PATCH TRANSDERM ONE
[2020-06-25] MEDS ORDERED: LIDOCAINE 1% (10MG/ML) FOR IV START INTRADERMA ONE (09:56)
[2020-06-25] MEDS ORDERED: ROCURONIUM BROMIDE 10 MG/ML 5 ML VIAL IV ONE (11:29)
[2020-06-25] MEDS ORDERED: KETOROLAC 15 MG/ML 1 ML VIAL ONE (11:29)
[2020-06-25] MEDS ORDERED: NEOSTIGMINE 1 MG/ML 10 ML VIAL ONE (11:29)
[2020-06-25] MEDS ORDERED: HYDROmorphone (PF) 1 MG/ML ONE (11:29)
[2020-06-25] MEDS ORDERED: GLYCOPYRROLATE 0.2 MG/ML 2 ML VIAL ONE (11:29)
[2020-06-25] MEDS ORDERED: PROPOFOL 10 MG/ML 20 ML VIAL IV ONE (11:29)
[2020-06-25] MEDS ORDERED: fentaNYL (PF) 50 MCG/ML 2 ML AMP ONE (11:29)
[2020-06-25] MEDS ORDERED: MIDAZOLAM 2 MG/2 ML VIAL ONE (11:29)
[2020-06-25] MEDS ORDERED: LIDOCAINE 1% INJ 10MG/ML (20 ML MDV) ONE (11:29)
[2020-06-25] MEDS ORDERED: SODIUM CHLORIDE 0.9% 100 ML with ceFAZolin 2,000 MG IV ONE ×2 (11:37)
[2020-06-25] MEDS ORDERED: BUPIVACAINE (PF) 0.25% 30 ML VIAL SQ ONE ×2 (11:37→11:59)
--- NOTE | 2020-06-25 12:42 | P.OP ---
Date of Procedure: 06/25/20 Procedure(s) Performed: PREOPERATIVE DIAGNOSIS: Chronic cholecystitis POSTOPERATIVE DIAGNOSIS: Same PROCEDURE: Laparoscopic cholecystectomy SURGEON: Karen EBL: Minimal see anesthesia record ANESTHESIA: Gen. COMPLICATIONS: None OPERATIVE PROCEDURE: The patient was brought and placed on the operating room table in the supine position. The patient was placed under general anesthesia at that time. The abdomen was prepped and draped in the usual sterile fashion. A small curvilinear infraumbilical incision was made. The fascia was grasped with the Norma forceps. The fascia was retracted anteriorly. The Veress needle was advanced into the peritoneal cavity. The saline drop test revealed high pressure. A second attempt was also unsuccessful. Following that the 5 mm optical trocar was used to enter the peritoneal cavity in the right upper quadrant. This occurred without difficulty. Full insufflation took place up to 15 mmHg. The umbilical region was inspected. Air within the falciform was noted. An additional 5 mm trocar was placed at the umbilical site. An additional 5 mm trocar was placed in the lateral right upper quadrant site. A 12 mm trocar was advanced into the epigastric incision site. The gallbladder was retracted superiorly and laterally. The peritoneum overlying the infundibulum was bluntly dissected. The patient's cystic duct was visualized. The junction between the cystic duct common and hepatic duct was identified. The cystic duct was then divided after placement of 3 12 mm clips on the patient's side and one on the specimen side. The cystic artery was identified and clipped as well. A small vessel was seen along the gallbladder fossa and clipped as well. The gallbladder was then removed from the liver bed using electrocautery. The gallbladder was then removed from the epigastric trocar site with an Endo Catch bag. The gallbladder fossa was irrigated with saline. There was no evidence of any bleeding or biliary drainage seen. The fascia at the 12 millimeter site was closed using a Vic-Brook 0 Vicryl stitch. The trochars were then removed. The skin at all 4 sites was closed using a 4-0 Monocryl stitch. Skin glue was utilized on the incision sites. At the end of this procedure the sponge and needle counts were correct. DISPOSITION: Stable to the recovery room
[2020-06-25 12:46] VITALS: TEMP 97.7
[2020-06-25] MEDS: HYDROmorphone 0.5 MG/0.5 ML SYRINGE IVP PRN ×2 (12:55→13:10)
[2020-06-25 14:21] VITALS: BP 113/71; PULSE 57; RESP 18
== END 2020-06-25 13:50 | disposition home or self-care (01) ==
LOC: OR 09:25
PROVIDERS: ATTEND Surgery
DX: K80.10 Calculus of gallbladder with chronic cholecystitis without obstruction (principal); D64.9 Anemia, unspecified; Z79.3 Long term (current) use of hormonal contraceptives; Z98.890 Other specified postprocedural states
CPT/HCPCS: 81025; 88304; 47562; J2250; J1644; J1100; J2710; J2405; J0690; J2001; J3010; J1170 ×2; J1885; J2704

== ENCOUNTER 2020-12-15 09:06 | Emergency (ER) | payer BC, OTHER ==
[2020-12-15] MEDS ORDERED: KETOROLAC 15 MG/ML 1 ML VIAL IVP STA (09:45)
[2020-12-15] MEDS ORDERED: SODIUM CHLORIDE 0.9% 1,000 ML IV STA (09:45)
[2020-12-15] MEDS ORDERED: ONDANSETRON 4 MG/2 ML VIAL IVP STA (09:45)
[2020-12-15] MEDS ORDERED: FAMOTIDINE 20 MG/2 ML VIAL IV STA (09:45)
--- NOTE | 2020-12-15 09:52 | ED ---
Abdominal Pain HPI - General Source: patient Mode of arrival: ambulatory Limitations: no limitations <Era Thompson - Last Filed: 12/15/20 11:18> <Haylie Mcdaniel - Last Filed: 12/21/20 23:45> - General Chief Complaint: Abdominal Pain Stated Complaint: abd pain, nausea Time Seen by Provider: 12/15/20 09:28 - History of Present Illness Initial Comments: 25-year-old female patient presents to the emergency department today for evaluation of midepigastric abdominal pain. Patient states the pain started last night. States she's had multiple episodes of vomiting and 2 episodes of diarrhea since symptom onset. Denies any fever or chills. States she did have cholecystectomy in June but this feels similar to when she had "gallbladder attacks". She denies any fever or chills. Denies any sick contacts or recent travel. Denies any new medications. She does take control but there is chance of . Denies any alcohol or drug use. Patient denies any recent rash, cough, shortness of breath, chest pain, back pain, numbness, tingling, dizziness, weakness, hematuria, dysuria, urinary urgency, urinary frequency, headache, visual changes, or any other complaints. (Era Thompson) - Related Data Home Medications Medication Instructions Recorded Confirmed Norelgestromin/Ethin.estradiol 1 patch TRANSDERM WE 06/23/20 12/15/20 [Xulane Patch] Ibuprofen [Motrin Ib] 200 mg PO Q8H PRN 12/15/20 12/15/20 Allergies Allergy/AdvReac Type Severity Reaction Status Date / Time No Known Allergies Allergy Verified 12/15/20 09:48 Review of Systems ROS Other: All systems not noted in ROS Statement are negative. <Era Thompson - Last Filed: 12/15/20 11:18> ROS Other: All systems not noted in ROS Statement are negative. <Haylie Mcdaniel - Last Filed: 12/21/20 23:45> ROS Statement: Those systems with pertinent positive or pertinent negative responses have been documented in the HPI. Past Medical History Past Medical History: No Reported History Additional Past Medical History / Comment(s): irregular bowel movements, gallstones, anemia, History of Any Multi-Drug Resistant Organisms: None Reported Past Surgical History: No Surgical Hx Reported, Cholecystectomy Additional Past Surgical History / Comment(s): surgery for ectopic , exploratory laparoscopy, oral surgery Past Anesthesia/Blood Transfusion Reactions: No Reported Reaction Past Psychological History: No Psychological Hx Reported Smoking Status: Never smoker Past Alcohol Use History: None Reported Past Drug Use History: None Reported - Past Family History Mother Family Medical History: No Reported History <Era Thompson - Last Filed: 12/15/20 11:18> General Exam Limitations: no limitations General appearance: alert, in no apparent distress, other (Physical well-develo ped, well-nourished adult female patient in no acute distress. Vital signs upon presentation are temperature 98.8F, pulse 103, respirations 18, blood pressure 116/74, pulse ox 100% on room air.) Eye exam: Present: normal appearance, PERRL, EOMI. Absent: scleral icterus, c onjunctival injection, periorbital swelling ENT exam: Present: normal exam, normal oropharynx, mucous membranes moist Respiratory exam: Present: normal lung sounds bilaterally. Absent: respiratory distress, wheezes, rales, rhonchi, stridor Cardiovascular Exam: Present: regular rate, normal rhythm, normal heart sounds. Absent: systolic murmur, diastolic murmur, rubs, gallop, clicks GI/Abdominal exam: Present: soft, tenderness (Midepigastric and left upper quadrant), normal bowel sounds. Absent: distended, guarding, rebound, rigid Neurological exam: Present: alert, oriented X3, CN II-XII intact Psychiatric exam: Present: normal affect, normal mood Skin exam: Present: warm, dry, intact, normal color. Absent: rash <Era Thompson M - Last Filed: 12/15/20 11:18> Course Vital Signs 12/15/20 12/15/20 12/15/20 09:19 10:49 11:12 Temperature 98.8 F 98.6 F 98.1 F Pulse Rate 103 H 87 82 Respiratory 18 16 18 Rate Blood Pressure 116/74 122/73 120/72 O2 Sat by Pulse 100 99 99 Oximetry Medical Decision Making - Lab Data Result diagrams: 12/15/20 09:51 12/15/20 09:51 <Era Thompson - Last Filed: 12/15/20 11:18> - Lab Data Result diagrams: 12/15/20 09:51 12/15/20 09:51 <Haylie Mcdaniel - Last Filed: 12/21/20 23:45> - Medical Decision Making 25-year-old female patient presented to the emergency department today for evaluation of midepigastric abdominal pain and vomiting. Physical examination did reveal mild midepigastric tenderness. Labs reviewed and are unremarkable. Patient was given IV fluids and IV medications for symptoms. Upon reevaluation patient is resting comfortably in bed and does report improvement of symptoms. We did discuss all results and findings. She'll be discharged to follow-up with her primary care physician for recheck in 1-2 days. She is given a prescription for Zofran. Instructed start with clear liquid diet and advance as tolerated. Return parameters were discussed in detail. She verbalizes understanding and agrees with this plan. Case discussed with my attending Dr. Mcdaniel. (Era Thompson) I was available for consultation in the emergency department. The history and physical exam were done by the midlevel provider. I was consulted for this patients care. I reviewed the case with the midlevel provider and based on their presentation of the patient, I agree with the assessment, medical decision making and plan of care as documented. Chart was dictated using [employer] dictation software. Attempts were made to correct any dictation errors however some typographical errors may persist. (Haylie Mcdaniel) - Lab Data Lab Results 12/15/20 12/15/20 12/15/20 Range/Units 09:51 09:51 09:51 WBC 4.5 (3.8-10.6) k/uL RBC 4.76 (3.80-5.40) m/uL Hgb 11.8 (11.4-16.0) gm/dL Hct 36.2 (34.0-46.0) % MCV 76.1 L (80.0-100.0) fL MCH 24.7 L (25.0-35.0) pg MCHC 32.5 (31.0-37.0) g/dL RDW 15.4 (11.5-15.5) % Plt Count 186 (150-450) k/uL MPV 7.7 Neutrophils % 76 % Lymphocytes % 17 % Monocytes % 6 % Eosinophils % 1 % Basophils % 0 % Neutrophils # 3.4 (1.3-7.7) k/uL Lymphocytes # 0.8 L (1.0-4.8) k/uL Monocytes # 0.3 (0-1.0) k/uL Eosinophils # 0.0 (0-0.7) k/uL Basophils # 0.0 (0-0.2) k/uL Microcytosis Slight Sodium (137-145) mmol/L Potassium (3.5-5.1) mmol/L Chloride (98-107) mmol/L Carbon Dioxide (22-30) mmol/L Anion Gap mmol/L BUN (7-17) mg/dL Creatinine (0.52-1.04) mg/dL Est GFR (CKD-EPI)AfAm (>60 ml/min/1.73 sqM) Est GFR (CKD-EPI)NonAf (>60 ml/min/1.73 sqM) Glucose (74-99) mg/dL Plasma Lactic Acid Maxi (0.7-2.0) mmol/L Calcium (8.4-10.2) mg/dL Total Bilirubin (0.2-1.3) mg/dL AST (14-36) U/L ALT (4-34) U/L Alkaline Phosphatase (38-126) U/L Total Protein (6.3-8.2) g/dL Albumin (3.5-5.0) g/dL Lipase (23-300) U/L Urine Color Yellow Urine Appearance Clear (Clear) Urine pH 6.0 (5.0-8.0) Ur Specific [place] 1.018 (1.001-1.035) Urine Protein Negative (Negative) Urine Glucose (UA) Negative (Negative) Urine Ketones 1+ H (Negative) Urine Blood Negative (Negative) Urine Nitrite Negative (Negative) Urine Bilirubin Negative (Negative) Urine Urobilinogen <2.0 (<2.0) mg/dL Ur Leukocyte Esterase Negative (Negative) Urine HCG, Qual Not Detected (Not Detectd) 12/15/20 12/15/20 Range/Units 09:51 09:51 WBC (3.8-10.6) k/uL RBC (3.80-5.40) m/uL Hgb (11.4-16.0) gm/dL Hct (34.0-46.0) % MCV (80.0-100.0) fL MCH (25.0-35.0) pg MCHC (31.0-37.0) g/dL RDW (11.5-15.5) % Plt Count (150-450) k/uL MPV Neutrophils % % Lymphocytes % % Monocytes % % Eosinophils % % Basophils % % Neutrophils # (1.3-7.7) k/uL Lymphocytes # (1.0-4.8) k/uL Monocytes # (0-1.0) k/uL Eosinophils # (0-0.7) k/uL Basophils # (0-0.2) k/uL Microcytosis Sodium 137 (137-145) mmol/L Potassium 3.7 (3.5-5.1) mmol/L Chloride 105 (98-107) mmol/L Carbon Dioxide 22 (22-30) mmol/L Anion Gap 10 mmol/L BUN 11 (7-17) mg/dL Creatinine 0.63 (0.52-1.04) mg/dL Est GFR (CKD-EPI)AfAm >90 (>60 ml/min/1.73 sqM) Est GFR (CKD-EPI)NonAf >90 (>60 ml/min/1.73 sqM) Glucose 87 (74-99) mg/dL Plasma Lactic Acid Maxi 0.9 (0.7-2.0) mmol/L Calcium 8.1 L (8.4-10.2) mg/dL Total Bilirubin 1.1 (0.2-1.3) mg/dL AST 28 (14-36) U/L ALT 22 (4-34) U/L Alkaline Phosphatase 100 (38-126) U/L Total Protein 6.9 (6.3-8.2) g/dL Albumin 3.7 (3.5-5.0) g/dL Lipase 100 (23-300) U/L Urine Color Urine Appearance (Clear) Urine pH (5.0-8.0) Ur Specific [place] (1.001-1.035) Urine Protein (Negative) Urine Glucose (UA) (Negative) Urine Ketones (Negative) Urine Blood (Negative) Urine Nitrite (Negative) Urine Bilirubin (Negative) Urine Urobilinogen (<2.0) mg/dL Ur Leukocyte Esterase (Negative) Urine HCG, Qual (Not Detectd) Disposition Is patient prescribed a controlled substance at d/c from ED?: No Time of Disposition: 10:52 <Era Thompson - Last Filed: 12/15/20 11:18> <Haylie Mcdaniel - Last Filed: 12/21/20 23:45> Clinical Impression: Abdominal pain, Vomiting Disposition: HOME SELF-CARE Condition: Good Instructions (If sedation given, give patient instructions): Acute Nausea and Vomiting (ED), Abdominal Pain (ED) Additional Instructions: Clear liquid diet and advance as tolerated. Follow-up with your primary care physician for recheck in 1-2 days. Use Zofran as needed for nausea. Return to the emergency department for any new, worsening, or concerning symptoms. Referrals: Jonh Fernandez MD [Primary Care Provider] - 1-2 days
[2020-12-15 10:10] LABS: Basophils % (A) 0 %; Eosinophils % (A) 1 %; HCT 36.2 % (34.0-46.0); HGB 11.8 gm/dL (11.4-16.0); Lymphocytes # (A) 0.8 k/uL (1.0-4.8); Lymphocytes % (A) 17 %; MCH 24.7 pg (25.0-35.0); MCHC 32.5 g/dL (31.0-37.0); MCV 76.1 fL (80.0-100.0); Mean Platelet Volume 7.7; Microcytosis Slight; Monocytes # (A) 0.3 k/uL (0-1.0); Monocytes % (A) 6 %; Neutrophils # (A) 3.4 k/uL (1.3-7.7); Neutrophils % (A) 76 %; Platelet Count 186 k/uL (150-450); RBC 4.76 m/uL (3.80-5.40); RDW 15.4 % (11.5-15.5); WBC 4.5 k/uL (3.8-10.6)
[2020-12-15 10:17] LABS: Appearance,Urine Clear (Clear); Bilirubin,Urine Negative (Negative); Blood,Urine Negative (Negative); Color,Urine Yellow; Glucose,Urine (UA) Negative (Negative); Ketones,Urine 1+ (Negative); Leukocyte Esterase,Urine Negative (Negative); Nitrite,Urine Negative (Negative); Protein,Urine Negative (Negative); Specific Gravity,Urine 1.018 (1.001-1.035); Urobilinogen,Urine <2.0 mg/dL (<2.0)
[2020-12-15 10:21] LABS: ALT 22 U/L (4-34); AST 28 U/L (14-36); African American GFR (CKD) >90 (>60 ml/min/1.73 sqM); Albumin 3.7 g/dL (3.5-5.0); Alkaline Phosphatase 100 U/L (38-126); Anion Gap 10 mmol/L; Blood Urea Nitrogen 11 mg/dL (7-17); Calcium 8.1 mg/dL (8.4-10.2); Carbon Dioxide 22 mmol/L (22-30); Chloride 105 mmol/L (98-107); Glucose 87 mg/dL (74-99); Lipase 100 U/L (23-300); Non-African American GFR(CKD) >90 (>60 ml/min/1.73 sqM); Potassium 3.7 mmol/L (3.5-5.1); Sodium 137 mmol/L (137-145); Total Bilirubin 1.1 mg/dL (0.2-1.3); Total Protein 6.9 g/dL (6.3-8.2)
[2020-12-15] MEDS ORDERED: ONDANSETRON 4 MG ODT STARTER PACK 2 TAB BTL PO STA (10:51)
[2020-12-15 11:13] VITALS: BP 120/72; PULSE 82; RESP 18; TEMP 98.1
== END 2020-12-15 11:13 | disposition home or self-care (01) ==
LOC: EC 09:06
DX: R10.13 Epigastric pain (principal); R11.10 Vomiting, unspecified; R10.816 Epigastric abdominal tenderness; Z79.3 Long term (current) use of hormonal contraceptives; Z90.49 Acquired absence of other specified parts of digestive tract
CPT/HCPCS: 36415; 80053; 83605; 83690; 85025; 81003; 81025; 99284; 96374; 96375 ×2; 96361; J2405; J1885; S0119

== ENCOUNTER 2021-01-27 19:58 | Emergency (ER) | payer BC, OTHER ==
[2021-01-27 20:02] VITALS: TEMP 98
[2021-01-27] MEDS ORDERED: SODIUM CHLORIDE 0.9% 1,000 ML IV STA (21:33)
[2021-01-27] MEDS ORDERED: ONDANSETRON 4 MG/2 ML VIAL IVP STA (21:33)
--- NOTE | 2021-01-27 21:43 | ED ---
General Adult HPI - General Chief complaint: Back Pain/Injury Stated complaint: bodyaches, cough Time Seen by Provider: 01/27/21 21:22 Source: patient, RN notes reviewed Mode of arrival: ambulatory Limitations: no limitations - History of Present Illness Initial comments: 25-year-old white female patient, in no acute distress, alert and oriented 4 presents to the emergency room with complaints of generalized weakness and body aches. Patient states that she had symptoms of sore throat and cough with diarrhea on January 04 and tested for covid but was negative at that time. Patient states developed sinus congestion and tested again on January 07 and was positive. Patient states has since gone back to work and was feeling well from January 18 through January 23. Patient states that over the last 2 days has developed body aches, nausea and fatigue. Patient states does have heavy periods with clots and just finished her period 4 days ago, mensturates for 4-5 days. Patient has been told in the past she has anemia but has never received a transfusion. Patient denies any other medical history. Denies any medications other than control pills. Pt is not a smoker. -: days(s) (2) Consistency: constant Associated Symptoms: nausea/vomiting, weakness - Related Data Home Medications Medication Instructions Recorded Confirmed Norelgestromin/Ethin.estradiol 1 patch TRANSDERM WE 06/23/20 12/15/20 [Xulane Patch] Ibuprofen [Motrin Ib] 200 mg PO Q8H PRN 12/15/20 12/15/20 Allergies Allergy/AdvReac Type Severity Reaction Status Date / Time No Known Allergies Allergy Verified 01/27/21 20:02 Review of Systems ROS Statement: Those systems with pertinent positive or pertinent negative responses have been documented in the HPI. ROS Other: All systems not noted in ROS Statement are negative. Past Medical History Past Medical History: No Reported History Additional Past Medical History / Comment(s): irregular bowel movements, gallstones, anemia, History of Any Multi-Drug Resistant Organisms: None Reported Past Surgical History: No Surgical Hx Reported, Cholecystectomy Additional Past Surgical History / Comment(s): surgery for ectopic , exploratory laparoscopy, oral surgery Past Anesthesia/Blood Transfusion Reactions: No Reported Reaction Past Psychological History: No Psychological Hx Reported Smoking Status: Never smoker Past Alcohol Use History: None Reported Past Drug Use History: None Reported - Past Family History Mother Family Medical History: No Reported History General Exam Limitations: no limitations General appearance: alert, in no apparent distress Head exam: Present: atraumatic, normocephalic, normal inspection Eye exam: Present: normal appearance, PERRL, EOMI. Absent: scleral icterus, conjunctival injection, periorbital swelling Neck exam: Present: normal inspection, full ROM. Absent: tenderness, meningismus, lymphadenopathy Respiratory exam: Present: normal lung sounds bilaterally, accessory muscle use. Absent: respiratory distress, wheezes, rales, rhonchi, stridor Cardiovascular Exam: Present: regular rate, normal rhythm, normal heart sounds. Absent: systolic murmur, diastolic murmur, rubs, gallop, clicks GI/Abdominal exam: Present: soft, normal bowel sounds. Absent: distended, tenderness, guarding, rebound, rigid Back exam: Present: normal inspection Neurological exam: Present: alert, oriented X3, CN II-XII intact Psychiatric exam: Present: normal affect, normal mood Skin exam: Present: warm, dry, intact, normal color. Absent: rash Course Vital Signs 01/27/21 20:00 Temperature 98.0 F Pulse Rate 67 Respiratory 18 Rate Blood Pressure 132/84 O2 Sat by Pulse 97 Oximetry Medical Decision Making - Medical Decision Making Chest x-ray negative for any infiltrates or atelectasis. White count within normal limits, hemoglobin and hematocrit 11.6 and 34.7 respectively patient feeling better. Will discharge home with follow-up with primary care doctor in 1 week. this is likely post viral fatigue. - Lab Data Result diagrams: 01/27/21 22:03 01/27/21 22:03 Lab Results 01/27/21 01/27/21 01/27/21 Range/Units 22:03 22:03 22:03 WBC 9.2 (3.8-10.6) k/uL RBC 4.52 (3.80-5.40) m/uL Hgb 11.6 (11.4-16.0) gm/dL Hct 34.7 (34.0-46.0) % MCV 76.6 L (80.0-100.0) fL MCH 25.6 (25.0-35.0) pg MCHC 33.4 (31.0-37.0) g/dL RDW 15.9 H (11.5-15.5) % Plt Count 313 (150-450) k/uL MPV 7.2 Neutrophils % 54 % Lymphocytes % 33 % Monocytes % 8 % Eosinophils % 2 % Basophils % 1 % Neutrophils # 5.0 (1.3-7.7) k/uL Lymphocytes # 3.1 (1.0-4.8) k/uL Monocytes # 0.7 (0-1.0) k/uL Eosinophils # 0.2 (0-0.7) k/uL Basophils # 0.1 (0-0.2) k/uL Microcytosis Slight Sodium 140 (137-145) mmol/L Potassium 3.8 (3.5-5.1) mmol/L Chloride 107 (98-107) mmol/L Carbon Dioxide 24 (22-30) mmol/L Anion Gap 9 mmol/L BUN 11 (7-17) mg/dL Creatinine 0.81 (0.52-1.04) mg/dL Est GFR (CKD-EPI)AfAm >90 (>60 ml/min/1.73 sqM) Est GFR (CKD-EPI)NonAf >90 (>60 ml/min/1.73 sqM) Glucose 94 (74-99) mg/dL Calcium 9.0 (8.4-10.2) mg/dL Total Bilirubin 0.8 (0.2-1.3) mg/dL AST 32 (14-36) U/L ALT 30 (4-34) U/L Alkaline Phosphatase 91 (38-126) U/L Total Protein 6.8 (6.3-8.2) g/dL Albumin 3.8 (3.5-5.0) g/dL Urine Color Yellow Urine Appearance Cloudy H (Clear) Urine pH 7.5 (5.0-8.0) Ur Specific [place] 1.019 (1.001-1.035) Urine Protein Negative (Negative) Urine Glucose (UA) Negative (Negative) Urine Ketones Negative (Negative) Urine Blood Negative (Negative) Urine Nitrite Negative (Negative) Urine Bilirubin Negative (Negative) Urine Urobilinogen 4.0 (<2.0) mg/dL Ur Leukocyte Esterase Small H (Negative) Urine RBC <1 (0-5) /hpf Urine WBC 4 (0-5) /hpf Ur Squamous Epith Cells 4 (0-4) /hpf Urine Mucus Rare H (None) /hpf Disposition Clinical Impression: Fatigue Disposition: HOME SELF-CARE Condition: Good Instructions (If sedation given, give patient instructions): Fatigue (ED) Additional Instructions: Tylenol and Motrin as needed for body aches. Increase your fluid intake. Follow-up with primary care doctor in 1 week Is patient prescribed a controlled substance at d/c from ED?: No Referrals: Jonh Fernandez MD [Primary Care Provider] - 1-2 days Time of Disposition: 22:56
[2021-01-27 22:18] LABS: Basophils # (A) 0.1 k/uL (0-0.2); Basophils % (A) 1 %; Eosinophils # (A) 0.2 k/uL (0-0.7); Eosinophils % (A) 2 %; HCT 34.7 % (34.0-46.0); HGB 11.6 gm/dL (11.4-16.0); Lymphocytes # (A) 3.1 k/uL (1.0-4.8); Lymphocytes % (A) 33 %; MCH 25.6 pg (25.0-35.0); MCHC 33.4 g/dL (31.0-37.0); MCV 76.6 fL (80.0-100.0); Mean Platelet Volume 7.2; Microcytosis Slight; Monocytes # (A) 0.7 k/uL (0-1.0); Monocytes % (A) 8 %; Neutrophils % (A) 54 %; Platelet Count 313 k/uL (150-450); RBC 4.52 m/uL (3.80-5.40); RDW 15.9 % (11.5-15.5); WBC 9.2 k/uL (3.8-10.6)
--- NOTE | 2021-01-27 22:32 | XR ---
EXAMINATION TYPE: XR chest 2V DATE OF EXAM: 01/27/2021 COMPARISON: 03/24/2020 HISTORY: Weakness TECHNIQUE: FINDINGS: Heart and mediastinum are normal. Lungs are clear. Diaphragm is normal. Bony thorax and sof t tissues appear normal. IMPRESSION: Normal chest. No change.
[2021-01-27 22:33] LABS: Appearance,Urine Cloudy (Clear); Bilirubin,Urine Negative (Negative); Blood,Urine Negative (Negative); Color,Urine Yellow; Glucose,Urine (UA) Negative (Negative); Ketones,Urine Negative (Negative); Leukocyte Esterase,Urine Small (Negative); Mucus,Urine Rare /hpf; Nitrite,Urine Negative (Negative); PH, Urine 7.5 (5.0-8.0); Protein,Urine Negative (Negative); RBC,Urine <1 /hpf (0-5); Specific Gravity,Urine 1.019 (1.001-1.035); Squamous Epithelial Cell,Urine 4 /hpf (0-4); WBC,Urine 4 /hpf (0-5)
[2021-01-27 22:41] LABS: ALT 30 U/L (4-34); AST 32 U/L (14-36); African American GFR (CKD) >90 (>60 ml/min/1.73 sqM); Albumin 3.8 g/dL (3.5-5.0); Alkaline Phosphatase 91 U/L (38-126); Anion Gap 9 mmol/L; Blood Urea Nitrogen 11 mg/dL (7-17); Carbon Dioxide 24 mmol/L (22-30); Chloride 107 mmol/L (98-107); Glucose 94 mg/dL (74-99); Non-African American GFR(CKD) >90 (>60 ml/min/1.73 sqM); Potassium 3.8 mmol/L (3.5-5.1); Sodium 140 mmol/L (137-145); Total Bilirubin 0.8 mg/dL (0.2-1.3); Total Protein 6.8 g/dL (6.3-8.2)
[2021-01-27 23:13] VITALS: BP 141/88; PULSE 76; RESP 16
== END 2021-01-27 23:14 | disposition home or self-care (01) ==
LOC: EC 19:58
DX: R53.83 Other fatigue (principal); Z90.49 Acquired absence of other specified parts of digestive tract
CPT/HCPCS: 36415; 80053; 85025; 81001; 71046; 99285; 96374; J2405

== ENCOUNTER 2022-07-03 17:29 | Outpatient (CLI) | payer OTHER ==
[2022-07-03 19:07] VITALS: BP 131/74; PULSE 93; RESP 14; TEMP 97.7
--- NOTE | 2022-07-03 21:19 | P.MSEPDOC ---
Presenting Problems - Arrival Data Date of Arrival on Unit: 07/03/22 Time of Arrival on Unit: 17:50 Mode of Transport: Ambulatory - Complaint OB-Reason for Admission/Chief Complaint: Possible Onset of Labor Medical History - Information : 3 Para: 2 Term: 2 : 0 Abortions: Spontaneous or Elective: 0 Number of Living Children: 2 - Gestational Age Gestational Age by NAY (wks/days): 38 Weeks and 5 Days Review of Systems - Review of Systems Constitutional: No problems Breast: No problems ENT: No problems Cardiovascular: No problems Respiratory: No problems Gastrointestinal: No problems Genitourinary: No problems Musculoskeletal: No problems Neurological: No problems Skin: No problems Vital Signs - Temperature Temperature: 97.7 F Temperature Source: Temporal Artery Scan - Pulse Right Brachial Pulse Rate: 93 Pulse Assessment Method: Automatic Cuff - Respirations Respiratory Rate: 14 Oxygen Delivery Method: Room Air - Blood Pressure Right Arm Blood Pressure: 131/74 Blood Pressure Mean: 93 Blood Pressure Source: Automatic Cuff Medical Screen Scoring - Cervical Exam Dilation (cm): 1.5 Effacement (%): 50 Station: -2 Membranes: Intact - Uterine Contractions Frequency From (mins): 2 Frequency To (mins): 5 Duration From (seconds): 50 Duration To (seconds): 60 Intensity: Mild Resting: Soft to palpation - Assessment - Baby A Baseline FHR: 135 Heart Rate - NICHD Category: Category I (Normal) NST: Reactive Physician Notification - Physician Notified Physician Notified Date: 07/03/22 Physician Notified Time: 18:50 Physician: Yarelis Lawton Order Received: Yes - Notification Comment Comment: d/c home Maternal Triage Index - Maternal Triage Index Presenting for scheduled procedure w/no complaint: No - Stat/Priority 1 Stat Priority 1: No - Urgent/Priority 2 Urgent Priority 2: No - Prompt/Priority 3 Prompt Priority 3: No - Non-Urgent/Priority 4 Non-Urgent Priority 4: Yes Criteria Met for Priority 4: contractions Disposition - Disposition OB Disposition: Discharge to home Discharge Date: 07/03/22 Discharge Time: 18:50 I agree with the RN Medical Screening Exam: Yes Case reviewed; plan agreed upon as documented in EMR&OBIX.: Yes Diagnosis: FALSE LABOR AT OR AFTER 37 COMPLETED WEEKS OF GESTATION
== END 2022-07-03 19:00 | disposition home or self-care (01) ==
LOC: FBPOP 17:29
PROVIDERS: ATTEND Obstetrics & Gynecology
DX: O47.1 False labor at or after 37 completed weeks of gestation (principal); Z3A.38 38 weeks gestation of pregnancy
CPT/HCPCS: 59025; G0463; 99213

== ENCOUNTER 2022-07-11 14:08 | Inpatient (IN) | payer OTHER ==
[2022-07-11] MEDS ORDERED: TERBUTALINE 1 MG/ML VIAL SQ PRN (14:37)
[2022-07-11] MEDS ORDERED: CARBOPROST TROMETHAMINE 250 MCG/ML 1 ML AMP IM PRN (14:37)
[2022-07-11] MEDS ORDERED: OXYTOCIN 10 UNIT/ML 1 ML VIAL IM PRN (14:37)
[2022-07-11] MEDS ORDERED: LIDOCAINE 0.5% (PF) 5 MG/ML (50 ML SDV) SQ PRN (14:37)
[2022-07-11] MEDS ORDERED: METHYLERGONOVINE 0.2 MG/ML 1 ML AMP IM PRN (14:37)
[2022-07-11] MEDS ORDERED: LACTATED RINGERS 1,000 ML IV SCH (14:45)
[2022-07-11] MEDS ORDERED: OXYTOCIN 30 UNITS/500 ML NS 30 UNIT in SALINE 1 500ML.BAG IV SCH ×2 (14:45→20:15)
[2022-07-11 15:08] LABS: Basophils % (A) 0 %; Eosinophils # (A) 0.1 k/uL (0-0.7); Eosinophils % (A) 1 %; HCT 32.6 % (34.0-46.0); HGB 9.9 gm/dL (11.4-16.0); Hypochromasia Marked; Lymphocytes # (A) 2.5 k/uL (1.0-4.8); Lymphocytes % (A) 20 %; MCH 22.6 pg (25.0-35.0); MCHC 30.5 g/dL (31.0-37.0); Mean Platelet Volume 9.2; Microcytosis Slight; Monocytes # (A) 0.6 k/uL (0-1.0); Monocytes % (A) 5 %; Neutrophils # (A) 9.2 k/uL (1.3-7.7); Neutrophils % (A) 73 %; Platelet Count 244 k/uL (150-450); RDW 14.9 % (11.5-15.5); WBC 12.6 k/uL (3.8-10.6)
--- NOTE | 2022-07-11 16:54 | P.HPOB ---
History of Present Illness H&P Date: 07/11/22 Chief Complaint: Labor 26-year-old presents at 39 weeks and 6 days complaining of contractions. Her cervix is 4 cm dilated, 80% effaced, -2 station. She is viral about every 4 minutes. heart tones 130 with moderate variability and reactive. Review of Systems All systems: negative Constitutional: Denies chills, Denies fever Eyes: denies blurred vision, denies pain Ears, nose, mouth and throat: Denies headache, Denies sore throat Cardiovascular: Denies chest pain, Denies shortness of breath Respiratory: Denies cough Gastrointestinal: Denies abdominal pain, Denies diarrhea, Denies nausea, Denies vomiting Genitourinary: Denies dysuria, Denies hematuria Musculoskeletal: Denies myalgias Integumentary: Denies pruritus, Denies rash Neurological: Denies numbness, Denies weakness Psychiatric: Denies anxiety, Denies depression Endocrine: Denies fatigue, Denies weight change Past Medical History Past Medical History: No Reported History Additional Past Medical History / Comment(s): irregular bowel movements, gallstones, anemia, History of Any Multi-Drug Resistant Organisms: None Reported Past Surgical History: No Surgical Hx Reported, Cholecystectomy Additional Past Surgical History / Comment(s): surgery for ectopic , exploratory laparoscopy, oral surgery Past Anesthesia/Blood Transfusion Reactions: No Reported Reaction Past Psychological History: No Psychological Hx Reported Smoking Status: Never smoker Past Alcohol Use History: None Reported Past Drug Use History: None Reported - Past Family History Mother Family Medical History: No Reported History Medications and Allergies Home Medications Medication Instructions Recorded Confirmed Type Pnv 11/Iron Fum/Folic Acid/Om3 1 each PO DAILY 07/11/22 07/11/22 History [Virt-Christian Dha Softgel] Allergies Allergy/AdvReac Type Severity Reaction Status Date / Time No Known Allergies Allergy Verified 07/11/22 14:18 Exam Osteopathic Statement: *. No significant issues noted on an osteopathic structural exam other than those noted in the History and Physical/Consult. Vital Signs Temp Pulse Resp BP Pulse Ox 07/11/22 14:56 97.7 F 76 18 127/70 97 07/11/22 14:32 97.1 F L 76 18 133/58 98 Intake and Output 07/11/22 07/11/22 07/11/22 06:59 14:59 22:59 Other: Weight 99.79 kg Heart: Regular rate and rhythm Lungs: Clear to auscultation bilaterally Abdomen: Soft, nontender Extremities: Negative Homans sign Results Result Diagrams: 07/11/22 14:55 Abnormal Lab Results - Last 24 Hours (Table) 07/11/22 Range/Units 14:55 WBC 12.6 H (3.8-10.6) k/uL Hgb 9.9 L (11.4-16.0) gm/dL Hct 32.6 L (34.0-46.0) % MCV 74.0 L (80.0-100.0) fL MCH 22.6 L (25.0-35.0) pg MCHC 30.5 L (31.0-37.0) g/dL Neutrophils # 9.2 H (1.3-7.7) k/uL Assessment and Plan (1) Normal labor Current Visit: No Status: Resolved Code(s): O80 - ENCOUNTER FOR FULL-TERM UNCOMPLICATED DELIVERY; Z37.9 - OUTCOME OF DELIVERY, UNSPECIFIED SNOMED Code(s): 54422810 Plan: 1. Admit to family place 2. Expectant management 3. Anticipate normal vaginal delivery
--- NOTE | 2022-07-11 20:02 | P.PROBDLV ---
Vaginal Delivery Note - . Vaginal Delivery Note: 26-year-old presents at 39 weeks and 6 days complaining of contractions. Her cervix is 4 cm dilated, 80% effaced, -2 station. She is viral about every 4 minutes. heart tones 130 with moderate variability and reactive. She progressed about 6-7 cm at 164 and amniotomy was performed, clear fluid noted. Her cervix is completely dilated by 194. She pushed, delivered a viable female infant over intact perineum at 194. Head delivered OA, anterior shoulder delivered gentle downward guidance of the posterior shoulder and rest of body. Nose and mouth bulb suctioned, cord clamped and cut, infant placed on mother's abdomen. Apgars 9, 9, weight 7 lbs. 14 oz. Placenta delivered spontaneously, intact with three-vessel cord at 194. Vagina, cervix, and perineum were inspected. Second-degree midline laceration was repaired with 3-0 Vicryl. Estimated blood loss 200 mL. Mother and baby in stable condition.
[2022-07-11] MEDS ORDERED: diphenhydrAMINE 50 MG/ML 1 ML VIAL IVP PRN ×2 (20:03)
[2022-07-11] MEDS ORDERED: ACETAMINOPHEN TAB 325 MG TAB PO PRN (20:03)
[2022-07-11] MEDS ORDERED: Rhogam IMMUNE GLOBULIN 1,500 UNIT/1 ML IM ONE (20:03)
[2022-07-11] MEDS ORDERED: ZOLPIDEM 5 MG TAB PO PRN (20:03)
[2022-07-11] MEDS ORDERED: diphenhydrAMINE 25 MG CAP PO PRN (20:03)
[2022-07-11] MEDS ORDERED: LANOLIN CREAM 5 GM TUBE TOPICAL PRN (20:03)
[2022-07-11] MEDS ORDERED: HYDROCORTISONE 2.5% RECTAL CREAM 30 GM TUBE RECTAL PRN (20:03)
[2022-07-11] MEDS ORDERED: BENZOCAINE/MENTHOL SPRAY 1 GM/SPRAY AEROSOL TOPICAL PRN (20:03)
[2022-07-11] MEDS ORDERED: diphenhydrAMINE 50 MG CAP PO PRN (20:03)
[2022-07-11] MEDS ORDERED: SIMETHICONE 80 MG CHEWABLE PO PRN (20:03)
[2022-07-11] MEDS: IBUPROFEN 600 MG TAB PO PRN (21:20)
[2022-07-12 06:56] LABS: Basophils % (A) 0 %; Eosinophils # (A) 0.1 k/uL (0-0.7); Eosinophils % (A) 1 %; HCT 28.3 % (34.0-46.0); HGB 8.7 gm/dL (11.4-16.0); Hypochromasia Marked; Lymphocytes # (A) 3.1 k/uL (1.0-4.8); Lymphocytes % (A) 23 %; MCH 22.5 pg (25.0-35.0); MCHC 30.6 g/dL (31.0-37.0); MCV 73.7 fL (80.0-100.0); Mean Platelet Volume 8.6; Microcytosis Slight; Monocytes # (A) 0.8 k/uL (0-1.0); Monocytes % (A) 6 %; Neutrophils # (A) 9.4 k/uL (1.3-7.7); Neutrophils % (A) 69 %; Platelet Count 193 k/uL (150-450); RBC 3.85 m/uL (3.80-5.40); RDW 14.9 % (11.5-15.5); WBC 13.6 k/uL (3.8-10.6)
[2022-07-12] MEDS: IBUPROFEN 600 MG TAB PO PRN ×2 (08:28→16:42)
[2022-07-12] MEDS: SENNOSIDES-DOCUSATE SODIUM 1 EACH TAB PO SCH ×2 (08:28→20:57)
--- NOTE | 2022-07-12 09:41 | P.DS ---
Providers Date of admission: 07/11/22 14:36 Expected date of discharge: 07/12/22 Attending physician: Latosha Soria Primary care physician: Stated None - Discharge Diagnosis(es) (1) Normal labor Current Visit: No Status: Resolved (2) Normal vaginal delivery Current Visit: No Status: Acute Hospital Course: Patient presented in active labor. She underwent a normal vaginal delivery. course was uncomplicated. She denies nausea, vomiting, chest pain, shortness of breath or any calf pain. Patient will be discharged home day #1 in stable condition to follow-up with me in 6 weeks. Plan - Discharge Summary New Discharge Prescriptions: New Ibuprofen [Motrin] 600 mg PO Q6HR PRN #30 tab PRN Reason: Mild Pain (Scale 1 To 3) No Action Pnv 11/Iron Fum/Folic Acid/Om3 [Virt-Christian Dha Softgel] 1 each PO DAILY Discharge Medication List Pnv 11/Iron Fum/Folic Acid/Om3 [Virt-Christian Dha Softgel] 1 each PO DAILY 07/11/22 [History] Ibuprofen [Motrin] 600 mg PO Q6HR PRN #30 tab 07/12/22 [Rx] Follow up Appointment(s)/Referral(s): Latosha Soria DO [Doctor of Osteopathic Medicine] - 6 Weeks Discharge Disposition: HOME SELF-CARE
[2022-07-12 20:21] VITALS: BP 104/67; PULSE 76; RESP 16; TEMP 98.1
--- NOTE | 2022-07-13 11:23 | P.MSEPDOC ---
Presenting Problems - Arrival Data Date of Arrival on Unit: 07/11/22 Time of Arrival on Unit: 14:36 Mode of Transport: Ambulatory - Complaint OB-Reason for Admission/Chief Complaint: Possible Onset of Labor Comment: c/o contractions every 5-10mins starting last night around 2100. Medical History - Information : 4 Para: 2 Term: 2 : 0 Abortions: Spontaneous or Elective: 1 Number of Living Children: 2 - Gestational Age Gestational Age by NAY (wks/days): 40 Weeks and 0 Days - History Complications: No Care Review of Systems - Review of Systems Constitutional: No problems Breast: No problems ENT: No problems Cardiovascular: No problems Respiratory: No problems Gastrointestinal: No problems Genitourinary: No problems Musculoskeletal: No problems Neurological: No problems Skin: No problems Vital Signs - Temperature Temperature: 98.1 F Temperature Source: Oral - Pulse Right Pulse Rate: 76 Pulse Assessment Method: Pulse Oximetry - Respirations Respiratory Rate: 16 Oxygen Delivery Method: Room Air O2 Sat by Pulse Oximetry: 99 - Blood Pressure Right Arm Blood Pressure: 104/67 Blood Pressure Mean: 79 Blood Pressure Source: Automatic Cuff Medical Screen Scoring - Cervical Exam Dilation (cm): 4 Effacement (%): 50 Station: -2 Membranes: Intact - Uterine Contractions Frequency From (mins): 5 Frequency To (mins): 10 Duration From (seconds): 90 Duration To (seconds): 100 Intensity: Moderate Resting: Soft to palpation - Assessment - Baby A Baseline FHR: 130 Heart Rate - NICHD Category: Category I (Normal) NST: Reactive Physician Notification - Physician Notified Physician Notified Date: 07/11/22 Physician Notified Time: 14:30 Physician: Latosha Soria Order Received: Yes (admit) Maternal Triage Index - Maternal Triage Index Presenting for scheduled procedure w/no complaint: No - Stat/Priority 1 Stat Priority 1: No - Urgent/Priority 2 Urgent Priority 2: No - Prompt/Priority 3 Prompt Priority 3: No - Non-Urgent/Priority 4 Non-Urgent Priority 4: Yes Criteria Met for Priority 4: c/o contractions. Disposition - Disposition OB Disposition: Admit Discharge Date: 07/12/22 Discharge Time: 20:36 I agree with the RN Medical Screening Exam: Yes Case reviewed; plan agreed upon as documented in EMR&OBIX.: Yes Diagnosis: ENCOUNTER FOR FULL-TERM UNCOMPLICATED DELIVERY
== END 2022-07-12 20:45 | disposition home or self-care (01) | DRG 807 ==
LOC: FBPOP 14:08 → 4FBP 14:36
PROVIDERS: ADMIT Obstetrics & Gynecology; ATTEND Obstetrics & Gynecology
PROC: 10E0XZZ Delivery of Products of Conception, External Approach (ICD-10-PCS; principal; 2022-07-11)
PROC: 0KQM0ZZ Repair Perineum Muscle, Open Approach (ICD-10-PCS; 2022-07-11)
PROC: 4A0HXCZ Measurement of Products of Conception, Cardiac Rate, External Approach (ICD-10-PCS; 2022-07-11)
PROC: 10907ZC Drainage of Amniotic Fluid, Therapeutic from Products of Conception, Via Natural or Artificial Opening (ICD-10-PCS; 2022-07-11)
PROC: 3E033VJ Introduction of Other Hormone into Peripheral Vein, Percutaneous Approach (ICD-10-PCS; 2022-07-11)
DX: O70.1 Second degree perineal laceration during delivery (principal); Z37.0 Single live birth; O99.02 Anemia complicating childbirth; D64.9 Anemia, unspecified; Z90.49 Acquired absence of other specified parts of digestive tract; Z3A.39 39 weeks gestation of pregnancy
CPT/HCPCS: 59025; 85025; 85461; 86850; 86900; 86901; 99213

== ENCOUNTER → 2025-01-14 | Outpatient (CLI) | payer BC ==
--- NOTE | 2025-01-14 07:25 | USB ---
Reason for Exam: Clinical finding. Patient History: Paternal grandmother had breast cancer. Findings: The lateral section of the breast of the right breast, the axilla of the left breast and the retroareolar of the left breast were scanned. Ultrasound lateral half of the right breast 6:00 to 12:00 for assessment of patient's pain. Additional scanning of the subareolar region and axilla. No solid or cystic lesion, duct ectasia, or axillary adenopathy is seen. Overall Assessment: Negative, BI-RAD 1 Management: Screening Mammogram of both breasts at age 42. Unless there is an indication to start sooner. Further clinical management of patient's lateral right breast pain. A clinical breast exam by your physician is recommended on an annual basis and results should be correlated with mammographic findings. This exam should not preclude additional follow-up of suspicious palpable abnormalities. Results were given to the patient verbally at the time of exam. [facility], , 01/14/2025 7:22 AM. Electronically signed and approved by: Richie Garcia M.D. Radiologist
== END | disposition home or self-care (01) ==
LOC: RADUSWWP 06:49
PROVIDERS: ATTEND Physician Assistant
DX: N64.4 Mastodynia (principal); Z80.3 Family history of malignant neoplasm of breast